=== PATIENT | male | born 1980 | race Caucasian/White ===

== ENCOUNTER 2023-05-16 17:29 | Observation (INO) | payer OTHER, SELFPAY ==
[2023-05-16] VITALS (20 sets, daily range): BP systolic 128–148; BP diastolic 84–109; PULSE 98–118; TEMP 36.5–37.2; O2SAT 94–100; BMI 30.7
--- NOTE | 2023-05-16 17:41 | XR_ITS ---
The [address] [address] Patient Name: LUCERO ENGLISH MRN: [id number] date: 1980 Sex: M Assigned Patient Location: ER Current Patient Location: ED.MAIN Accession/Order Number: [id number] Exam Date: 05/16/2023 17:50 Report Date: 05/16/2023 18:43 At the request of: JANETH BANDA Procedure: XR ankle LT min 3V EXAM: XR ankle LT min 3V HISTORY: fall COMPARISON: None. TECHNIQUE: AP, lateral, radiographs of the ankle labeled left FINDINGS: Trimalleolar fracture. Soft tissue swelling about the ankle. There is anterior dislocation of the tibia by 2.3 cm. There is anterior displacement of the fibula. XR/XR ankle LT min 3V IMPRESSION: 1. Trimalleolar fracture/dislocation. Electronically authenticated by: SHARIF ASHBY Date: 05/16/2023 18:43
--- NOTE | 2023-05-16 17:42 | ED.LOWEXI1 ---
HPI - Extremity Injury (Lower) General Chief Complaint: Extremity Injury, Lower Stated Complaint: lower extremity injury Time Seen by Provider: 05/16/23 17:38 Source: patient Mode of arrival: Wheelchair Limitations: no limitations History of Present Illness HPI Narrative: 42 year-old male presents for left ankle injury. He fell walking today and has not been able to walk since. He states he is an alcoholic and was drinking alcohol heavily today. He is unable to provide detailed history. No other apparent injury was sustained. He was brought in by family. Related Data Home Medications ?Medication ?Instructions ?Recorded ?Confirmed No Known Home Medications 05/16/23 05/16/23 Allergies Allergy/AdvReac Type Severity Reaction Status Date / Time Penicillins Allergy Severe Hives Verified 05/16/23 17:41 Review of Systems ROS Narrative A ten point review of systems is negative except as noted above. Exam Narrative Exam Narrative: Nurses note and vital signs reviewed and patient is not hypoxic. General: The patient appears well and in no apparent distress. Patient is resting comfortably on cart. Skin: Warm, dry, no pallor noted. There is no rash noted. Head: Normocephalic, atraumatic Eye: Normal conjunctiva, no drainage Ears, Nose, Mouth, and Throat: oral mucosa is moist. Nares patent. Cardiovascular: Regular Rate and Rhythm Respiratory: Patient is in no distress, no accessory muscle use, lungs are clear to auscultation, no wheezing, rales or rhonchi Back: non-tender GI: Normal bowel sounds, no tenderness to palpation, no masses appreciated. No rebound, guarding, or rigidity noted. Musculoskeletal: Left ankle is examined. Deformity present with skin intact. Dorsalis pedis pulse 2+. Neurological: Awake and alert Psychiatric: Cooperative Constitutional Vital Signs, click to edit/add: Last Vital Signs Temp 97.7 F 05/16/23 17:35 Pulse 106 H 05/16/23 17:35 Resp 20 05/16/23 17:35 BP 139/109 H 05/16/23 17:35 Pulse Ox 97 05/16/23 17:35 O2 Del Method Room Air 05/16/23 17:35 Course Vital Signs Vital signs: Vital Signs Temperature 97.7 F 05/16/23 17:35 Pulse Rate 106 H 05/16/23 17:35 Respiratory Rate 20 05/16/23 17:35 Blood Pressure 139/109 H 05/16/23 17:35 Pulse Oximetry 97 05/16/23 17:35 Oxygen Delivery Method Room Air 05/16/23 17:35 Temperature 97.7 F 05/16/23 17:35 Pulse Rate 106 H 05/16/23 17:35 Respiratory Rate 20 05/16/23 17:35 Blood Pressure 139/109 H 05/16/23 17:35 Pulse Oximetry 97 05/16/23 17:35 Oxygen Delivery Method Room Air 05/16/23 17:35 MDM - Extremity Injury (Lower) MDM Narrative Medical decision making narrative: Case discussed with Dr. Macario and the patient will be admitted with the plan for surgery tomorrow. Findings are discussed with the patient and his mother. Differential Diagnosis Differential diagnosis: Likely ankle sprain and strain and other (Fracture dislocation) Imaging Data X-ray of ankle: My impression: The initial x-ray shows fracture dislocation with anterior displacement of the tibia. Postreduction on my interpretation as well shows good reduction and he has a trimalleolar fracture. Discharge Plan Discharge Chief Complaint: Extremity Injury, Lower Clinical Impression: Closed fracture dislocation of ankle Patient Disposition: Admitted As Inpatient Time of Disposition Decision: 18:45 Condition: Good Print Language: Kazakh Referrals: ELIZABETH DUNAWAY [Primary Care Provider] - 1 week Procedures ED Ortho Fracture Reduction Moderate Sedation Message Please read if using moderate sedation: The patient was given IV conscious sedation with IV etomidate which resulted in an appropriate level of sedation. He was closely monitored during the procedure and was kept on the heart monitor and O2 saturation monitor. Respiratory therapy was present. Total sedation time was 6 minutes. Other than his O2 saturation going to 90% briefly there were no complications. Please see the attached handwritten conscious sedation procedure note. Orthopedic Fracture Reduction Fracture #1: Time out performed: Yes Side: left Manipulation performed: Yes Fracture reduction location: tibia Analgesia: procedural sedation Technique: traction/counter-traction Anesthesia needed: No Post-reduction x-rays demonstrate: anatomical reduction Post-reduction neuro exam: intact Post-reduction vascular exam: intact Splint applied: Yes Patient tolerated procedure: well Additional comments: The patient was on IV conscious sedation and was monitored closely. At 1 point his O2 saturation went down to 90% and he was bagged and quickly came right back to 99%. Splint applied, application checked by me and found to be appropriate, he is neurovascularly intact
--- NOTE | 2023-05-16 17:43 | PC.NURSE ---
pt rolled ankle coming out of bar today, ankle is red with swelling and appears to be displaced.
--- NOTE | 2023-05-16 17:46 | PC.NURSE ---
pulse to top of injured foot obtained by DR Grove and this nurse at bedside
--- NOTE | 2023-05-16 17:54 | XR_ITS ---
The [address] [address] Patient Name: LUCERO ENGLISH MRN: [id number] date: 1980 Sex: M Assigned Patient Location: ER Current Patient Location: ED.MAIN Accession/Order Number: [id number] Exam Date: 05/16/2023 18:15 Report Date: 05/16/2023 18:45 At the request of: JANETH BANDA Procedure: XR ankle LT min 3V EXAM: XR ankle LT min 3V HISTORY: Postreduction COMPARISON: Ankle radiographs 05/16/2023 TECHNIQUE: AP lateral oblique radiographs of the ankle labeled left. FINDINGS: Splint material in place about the ankle fracture which is now in improved alignment. There is a fracture of the medial malleolus. Fracture of the fibula above the level of the joint line. The Distal fragment is displaced laterally by 0.7 cm. Fracture of the posterior tibia. Soft tissue swelling about the ankle. XR/XR ankle LT min 3V IMPRESSION: 1. Trimalleolar fracture in improved alignment status post splinting. Electronically authenticated by: SHARIF ASHBY Date: 05/16/2023 18:45
[2023-05-16] MEDS: ETOMIDATE 20 MG/10 ML VIAL IVP (18:05)
--- NOTE | 2023-05-16 18:15 | PC.NURSE ---
resp bagging for better oxygen at this time
--- NOTE | 2023-05-16 18:16 | PC.NURSE ---
bagging stopped, and pt on NC at 2L, pt responding at this time. splint in place
[2023-05-16 19:12] LABS: Basophils Percent Auto 0.3 % (0.2-2.0); Eosinophils Percent Auto 0.5 % (0.9-7.0); Hematocrit 45.3 % (42.0-54.0); Hemoglobin 15.6 g/dL (14.0-18.0); Immature Granulocytes Abs Auto 0.01 10^3/uL (0.00-0.03); Immature Granulocytes Pct Auto 0.1 % (0.0-0.5); Lymphocytes Absolute Auto 1.3 10^3/uL (1.2-3.8); Lymphocytes Percent Auto 17.4 % (20.5-60.0); Mean Corpuscular HGB Conc 34.4 g/dL (29.9-35.2); Mean Corpuscular Hemoglobin 31.7 pg (25.9-34.0); Mean Corpuscular Volume 92.1 fL (80.0-94.0); Mean Platelet Volume 9.2 fL (9.5-13.5); Monocytes Absolute Auto 0.3 10^3/uL (0.3-0.8); Monocytes Percent Auto 3.4 % (1.7-12.0); Neutrophils Absolute Auto 5.7 10^3/uL (1.4-6.5); Neutrophils Percent Auto 78.3 % (43.0-75.0); Platelet Count 269 10^3/uL (150-450); Red Blood Count 4.92 10^6/uL (4.70-6.10); Red Cell Distribution Width 11.6 % (11.0-15.0); White Blood Count 7.3 10^3/uL (4.0-11.0)
[2023-05-16 19:28] LABS: Anion Gap 15.8; BUN Creatinine Ratio 5.1; Calcium 8.6 mg/dL (8.5-10.1); Carbon Dioxide 28.9 mmol/L (21.0-32.0); Chloride 100 mmol/L (98-107); Estimated GFR (African America >60 (>=60); Estimated GFR (Non-African Ame >60 (>=60); Ethanol 359 mg/dL; Glucose 132 mg/dL (74-106); Potassium 3.7 mmol/L (3.5-5.1); Sodium 141 mmol/L (136-145)
[2023-05-16] MEDS: MORPHINE SULFATE 4 MG/ML VIAL IV (19:43)
[2023-05-16] MEDS: 0.9 % SODIUM CHLORIDE 1,000 ML 100 ML IV (21:43)
[2023-05-16] MEDS: OXYCODONE HCL/ACETAMINOPHEN 5MG/325MG 1 TAB PO (21:43)
[2023-05-16] MEDS: KETOROLAC TROMETHAMINE 30 MG/ML VIAL IVP (21:44)
[2023-05-16] MEDS: FOLIC ACID 1 MG TABLET PO (21:44)
[2023-05-16] MEDS: THIAMINE MONONITRATE (VIT B1) 100 MG TABLET PO (21:44)
[2023-05-16] MEDS: LORAZEPAM 1 MG TABLET PO (21:51)
[2023-05-17] VITALS (26 sets, daily range): BP systolic 143–162; BP diastolic 82–110; PULSE 83–116; TEMP 36.4–37.1; O2SAT 93–96
--- NOTE | 2023-05-17 | FL_ITS ---
[address] [address] Patient Name: LUCERO ENGLISH MRN: [id number] date: 1980 Sex: M Assigned Patient Location: MS Current Patient Location: MS Accession/Order Number: [id number] Exam Date: 05/17/2023 09:16 Report Date: 05/20/2023 12:50 At the request of: APOLINAR MASON Procedure: FL fluoroscopy <1hr NON-READ EXAM: FL fluoroscopy <1hr NON-READ HISTORY: TECHNIQUE: FINDINGS: Please see Operative Report. Electronically authenticated by: RADIOLOGIST NO Date: 05/20/2023 12:50
[2023-05-17] MEDS: MORPHINE SULFATE 4 MG/ML VIAL IV ×2 (00:11→04:27)
[2023-05-17] MEDS: OXYCODONE HCL/ACETAMINOPHEN 5MG/325MG 1 TAB PO (02:00)
[2023-05-17] MEDS: LORAZEPAM 1 MG TABLET PO (02:00)
[2023-05-17] MEDS: KETOROLAC TROMETHAMINE 30 MG/ML VIAL IVP (04:26)
[2023-05-17 05:16] LABS: Basophils Percent Auto 0.1 % (0.2-2.0); Eosinophils Percent Auto 0.4 % (0.9-7.0); Hematocrit 39.9 % (42.0-54.0); Hemoglobin 13.7 g/dL (14.0-18.0); Immature Granulocytes Abs Auto 0.02 10^3/uL (0.00-0.03); Immature Granulocytes Pct Auto 0.3 % (0.0-0.5); Lymphocytes Absolute Auto 1.8 10^3/uL (1.2-3.8); Lymphocytes Percent Auto 25.2 % (20.5-60.0); Mean Corpuscular HGB Conc 34.3 g/dL (29.9-35.2); Mean Corpuscular Hemoglobin 31.9 pg (25.9-34.0); Mean Corpuscular Volume 92.8 fL (80.0-94.0); Mean Platelet Volume 9.7 fL (9.5-13.5); Monocytes Absolute Auto 0.5 10^3/uL (0.3-0.8); Monocytes Percent Auto 6.4 % (1.7-12.0); Neutrophils Absolute Auto 4.8 10^3/uL (1.4-6.5); Neutrophils Percent Auto 67.6 % (43.0-75.0); Platelet Count 196 10^3/uL (150-450); Red Cell Distribution Width 11.6 % (11.0-15.0); White Blood Count 7.1 10^3/uL (4.0-11.0)
[2023-05-17] MEDS: 0.9 % SODIUM CHLORIDE 1,000 ML 100 ML IV ×2 (06:41→21:23)
--- NOTE | 2023-05-17 07:10 | XR_ITS ---
The [address] [address] Patient Name: LUCERO ENGLISH MRN: [id number] date: 1980 Sex: M Assigned Patient Location: MS Current Patient Location: MS Accession/Order Number: [id number] Exam Date: 05/17/2023 07:20 Report Date: 05/17/2023 07:39 At the request of: IRAM JOHNSON Procedure: XR chest 1V EXAMINATION: XR chest 1V HISTORY: preop eval COMPARISON: No relevant comparison available. FINDINGS: LUNGS: No significant pulmonary parenchymal abnormalities. VASCULATURE: No increased pulmonary vasculature. PLEURA: No pneumothorax, effusion, or pleural thickening. CARDIAC: No cardiomegaly or cardiac silhouette abnormality. MEDIASTINUM: No visible mass or adenopathy. BONES: No fracture or visible bone lesion. OTHER: Negative. XR/XR chest 1V IMPRESSION: 1. Underexpanded lungs without convincing acute abnormality. Electronically authenticated by: KYLE LÓPEZ Date: 05/17/2023 07:39
[2023-05-17 07:27] LABS: Magnesium 1.5 mg/dL (1.8-2.4)
[2023-05-17 07:30] LABS: INR 1.06; Partial Thromboplastin Time 27.7 sec (22.3-36.2); Prothrombin Time 11.2 sec (9.0-11.6)
[2023-05-17] MEDS: LACTATED RINGER'S SOLUTION 1,000 ML 50 ML IV ×2 (08:07→11:36)
[2023-05-17] MEDS: MAGNESIUM SULFATE/D5W 1 GM/100 ML PIGGYBACK IV (08:14)
[2023-05-17] MEDS: HYDROMORPHONE HCL 1 MG/ML CARTRIDGE IV (08:15)
[2023-05-17 08:29] LABS: Alanine Aminotransferase 70 U/L (16-63); Albumin Level 3.5 g/dL (3.4-5.0); Alkaline Phosphatase 64 U/L (46-116); Aspartate Amino Transferase 53 U/L (15-37); BUN Creatinine Ratio 7.1; Bilirubin Total 1.1 mg/dL (0.2-1.0); Calcium 8.2 mg/dL (8.5-10.1); Carbon Dioxide 24.8 mmol/L (21.0-32.0); Chloride 99 mmol/L (98-107); Estimated GFR (African America >60 (>=60); Estimated GFR (Non-African Ame >60 (>=60); Globulin 3.6 g/dL; Glucose 114 mg/dL (74-106); Sodium 139 mmol/L (136-145); Total Protein 7.1 g/dL (6.4-8.2)
[2023-05-17 08:31] LABS: Anion Gap 18.2
[2023-05-17] MEDS: CLINDAMYCIN PHOSPHATE/D5W 900 MG/50 ML PIGGYBACK 100 MG IV (09:58)
--- NOTE | 2023-05-17 11:39 | P.ORON_ITS ---
Brief Operative Note Date of procedure: 05/17/23 Pre-op diagnosis general: left trimalleolar ankle fracture with ankle dislocat ion Post-op diagnosis: same as pre-op Procedure: PROCEDURES PERFORMED: open reduction and internal fixation of trimalleolar ankle fracture without posterior fixation, stress examination under intraoperative fluoroscopy INDICATION FOR PROCEDURE: patient is a 42-year-old alcoholic male who was walking out of bar yesterday afternoon and had a misstep resulting in left ankle fracture dislocation. He is brought to the emergency department was splinted and reduced in admitted under the hospitalist. X-rays revealed a displaced trimalleolar ankle fracture however the posterior malleolus was largely intact with a small avulsion fracture. I recommended open reduction internal fixation and discussed potential risks and benefits. Patient provided consent and all questions were answered to satisfaction. I did emphasize his increased risks of nerve damage/numbness and tingling and skin palpitations given the dislocation and trauma to the soft tissues. In addition he is at higher risk for posttraumatic arthritis and chronic disability given the severity of his fracture. INTRAOPERATIVE FINDINGS: displaced mildly comminuted fibular fracture and transverse fracture of the medial malleolus involving the anterior colliculus. Posterior malleolus had a small avulsion fracture. Bone quality is within normal limits given patient's age and gender. Stress examination after fixation of the lateral and medial malleolus revealed a stable syndesmosis and stable collateral ankle ligaments. PROCEDURES IN DETAIL: Patient was identified in pre op and consent was reviewed. Correct side and site were identified and marked. Pre-op antibiotics were started. Patient was brought to OR suite and place on table in a supine position. General anesthesia was administered. Tourniquet applied. Operative extremity was prepped and draped in usual sterile fashion. Formal time-out was performed and the foot/ankle were exsanguinated and tourniquet inflated. Fibula: A longitudinal incision placed over the fibular malleolus was undertaken. Combination of sharp and blunt dissection gained access to the fibular fracture in all bleeders were coagulated. Hematoma was evacuated. Any periosteum or fibrous tissue was removed from the fracture line and the fracture surfaces were lightly curetted. Then utilizing manual reduction techniques and reduction clamps the fibula and mortise were then reduced and pinned in place with K wires temporarily. 3.5 mm cortical lag screw was placed across the fracture line and compression was noted. 3.5 mm fibular plate was placed over the fibula which was held in place temporarily. Then locking and nonlocking screws were placed according to the routing machine operator's standard directions. Stability across the fracture was noted and all temporary fixation was removed. The site was irrigated Medial malleolus: Incision was placed over the medial malleolus and all bleeders were coagulated. Sharp and blunt dissection gained access to the fracture and fibrous and hematoma tissue was removed. The fracture was curetted lightly and then reduced with reduction clamps. Temporary K wire fixation was placed under fluoroscopic guidance. Two 4.0 mm cannulated screws were placed according to the routing machine operator's standard directions with compression noted across the fracture line. Temporary fixation was removed and surgical site was irrigated. Syndesmosis: Under live fluoroscopy the syndesmosis was stressed and noted to be stable. similarly anterior drawer and talar tilt were tested and also stable. The tourniquet was dropped with a prompt hyperemic response and the surgical sites were allowed to perfuse while being irrigated with 1L of normal saline. once hemostasis was controlled the incisions were closed in layers. A dry sterile dressing consisting of Xeroform on the incisions followed by 4 x 4 gauze, ABDs, and Kerlix were applied. Multiple layers of cast padding were then applied to ensure all bony prominences were well-padded. a layer of winston wraps were then applied followed by additional layers of cast padding. A plaster posterior splint was then applied which was held in place by Winston wraps. Capillary refill time to all digits was evaluated and had appropriate response. Patient tolerated the procedure and anesthesia well was transferred to the recovery room with vital signs stable and brisk capillary refill time to the toes. POSTOPERATIVE PLAN: Transfer to med/surg under hospitalist's care NWB operative foot/ankle Ice and elevation Laurence-op antibiotics, multimodal pain medication and DVT prophylaxis ordered Consults: physical therapy & social media job titles Estimated LOS 1 additional night Will follow *NWB x4-6 weeks Implants: Medline plate/screws Anesthesia: regional and General-LMA Surgeon: Rodrigo Macario Auto Body Service Mechanic: Perez Lott Estimated blood loss (mL): 50 Tourniquet time (min): 63 Pathology: none sent Condition: stable Disposition: PACU
--- NOTE | 2023-05-17 12:53 | PC.NURSE ---
[address] MASON FROM ANESTHESIA. PATIENT'S BLOOD PRESSURES WERE ELEVATING AT ARRIVAL TO [facility]. DR MASON STATES IT HAS TO DO WITH HIS ALCHOLISM . IT WILL NEED TO BE MONITORED AND ADDRESSED IT CONTINUESTO RISE. DR MASON IS AWARE.
[2023-05-17] MEDS: HYDRALAZINE HCL 20 MG/ML VIAL 10 MG IVP (13:23)
--- NOTE | 2023-05-17 13:50 | P.HP_ITS ---
<Statement entered by Sharmila Gomez DO - 05/17/23 15:53> This documentation has been reviewed and approved. Patient also seen and evaluated by me post operatively and agree with librium taper to aid with alcohol withdrawal symptoms. HPI H&P: HPI History of Present Illness Chief complaint: lower extremity injury cLOSED FRACTURE DISLOCATION Narrative: 05/17/23 1310 This is a 42-year-old male patient with a benign past medical history except for chronic EtOH abuse, who presented to the ED last night after suffering a fall and finding he was unable to bear weight on his left ankle. The patient reports that he was out at a restaurant drinking heavily. As he was walking in the restaurant and attempted to step down 1 step, he rolled his ankle and has been unable to bear weight or walk since. He presented to the ED for further evaluation. Workup in the ED revealed elevated EtOH (359), mild hyperglycemia (132), and hypertension (139/109). An x-ray of his left ankle revealed a trimalleolar fracture and dislocation of both the tibia and fibula. The dislocations were reduced in the ED and a splint was applied. He was admitted admitted as an inpatient to the hospitalist service pending surgical intervention by the Dr Macario, cnc grinder, this morning. At the time of my exam the patient had just returned from PACU to his room on the medical floor. He is somnolent but arouses easily to verbal stimuli. He is oriented x 3. He reports alcohol intake history of about 1/5 of vodka a day. He was attempting to wean off his alcohol consumption for the 2 weeks prior to this event, but was binge drinking heavily yesterday prior to the fall. He currently denies any pain. He has sensation but no motion of the left foot after an IntraOp nerve block. He denies chest pain, shortness of breath, or nausea/vomiting. Additional pre-op testing revealed hypomagnesemia (1.5) and this was repleted in the OR before surgery. Opioid HPI Opioid Management Most Recent Opioid Data: Last Pain Scale 10 05/17/23 07:50 Last Pain Assessment 05/17/23 13:50 Last ED Pain Assessment 05/16/23 19:08 Last MAR Pain Assessment 05/17/23 05:34 Last ORT Total Score 7 05/16/23 20:11 Last ORT Risk Category Moderate Risk 05/16/23 20:11 Review of Systems 2 ROS Status of ROS 10 or more systems reviewed and unremark able except as noted in history and below PFSH PFS Medical History (Updated 05/17/23 @ 14:04 by Merna Arrington NP) ETOH abuse ?F10.10 - Alcohol abuse, uncomplicated (ICD-10) Fracture of left ankle ?S82.892A - Other fracture of left lower leg, initial encounter for closed fracture (ICD-10) Laxity of eyelid ?H02.59 - Other disorders affecting eyelid function (ICD-10) Surgical History (Updated 05/16/23 @ 20:18 by Lina Walton) Metal plates in left arm ?Z96.7 - Presence of other bone and tendon implants (ICD-10) Hx of hernia repair ?Z98.890 - Other specified postprocedural states (ICD-10) ?Z87.19 - Personal history of other diseases of the digestive system (ICD-10) Family History (Updated 05/16/23 @ 20:14 by Lina Walton) Grandmother Family history of cancer Family history of hypertension Family history of myocardial infarction Father Family history of hypertension Family history of stroke Grandfather Family history of myocardial infarction Social History (Updated 05/16/23 @ 20:16 by Lina Walton) Within the past year, how often did you have a drink containing alcohol: 4 or more times a week Within the past year, how often did you have six or more drinks on one occasion: daily or almost daily Smoking status: Former smoker Non-prescribed substance use: denies use Previous occupational history: [employer] Highest level of school completed/degree received: high school graduate Are you now , , , , never or living with a partner: never In a typical week, how many times do you talk on the telephone with family, friends, or neighbors: 3 or more times per week How often do you get together with friends or relatives: 3 or more times per week Little interest or pleasure in doing things: not at all Feeling down, depressed, or hopeless: not at all Feel stressed/tense/nervous/anxious/difficulty sleeping: not at all Do you think of yourself as: straight/heterosexual Gender Identity: male Meds Home Medications and Allergies Home Medications ?Medication ?Instructions ?Recorded ?Confirmed ?Type No Known Home Medications 05/16/23 05/16/23 History Allergies Allergy/AdvReac Type Severity Reaction Status Date / Time Penicillins Allergy Severe Hives Verified 05/16/23 17:41 Exam Constitutional Vital Signs, click to edit/add: Last Vital Signs Temp 98.6 F 05/17/23 13:49 Pulse 112 H 05/17/23 13:49 Resp 20 05/17/23 13:49 BP 155/96 H 05/17/23 13:49 Pulse Ox 96 05/17/23 13:49 O2 Del Method Room Air 05/17/23 13:49 O2 Flow Rate 2 05/16/23 18:30 Common normals: no apparent distress, oriented x3, alert and well nourished General appearance: cooperative Orientation/consciousness: Yes awake HENMT Common normals: normocephalic, head/scalp atraumatic, hearing grossly normal bilaterally, external nose normal and moist oral mucous membranes Eye Common normals: PERRL, EOMs intact bilaterally, conjunctivae normal and no scleral icterus Alignment: alignment normal Eyelid: eyelids normal Neck & C-Spine Common normals: full ROM, supple and no JVD Chest Common normals: inspection of chest normal Chest: symmetrical chest wall rise Respiratory Common normals: normal respiratory effort, no retractions, no use of accessory muscles and clear to auscultation bilaterally Effort & inspection: able to speak in complete sentences Cardio Common normals: no JVD, regular rate, regular rhythm, S1 normal heart sound, S2 normal heart sound, no gallops, no clicks, no murmurs, no rub and peripheral pulses 2+ throughout GI Common normals: Normal to inspection, nondistended, normoactive bowel sounds present, soft to palpation, non-tender, no hepatosplenomegaly, no masses and no bruits Palpation: soft and no hepatosplenomegaly Bladder/kidney exam: bladder normal to palpation Back & Pelvis Common normals: thoracic and lumbar spine normal to inspection Extremity Common normals: normal capillary refill and no pedal edema General: normal exam except as noted; no clubbing and no cyanosis Left lower extremity: ankle joint (Surgical splint/drsg in place, D&I) Left ankle: neurovascular exam (No motion, positive sensation. Marrero/warm.) Neuro Gay Coma Scale: GCS not evaluated Common normals: CN's II-XII intact bilaterally, moves all extremities, no focal motor deficits and no sensory deficits noted Psych Common normals: mental status grossly normal, thought process normal, affect normal and activity/motor behavior normal Results Labs Labs: Short CBC 05/16/23 05/17/23 Range/Units 19:02 04:07 WBC 7.3 7.1 (4.0-11.0) 10^3/uL Hgb 15.6 13.7 L (14.0-18.0) g/dL Hct 45.3 39.9 L (42.0-54.0) % Plt Count 269 196 (150-450) 10^3/uL BMP 05/16/23 05/17/23 19:02 04:07 Sodium 141 139 Potassium 3.7 3.0 L Chloride 100 99 Carbon Dioxide 28.9 24.8 BUN 4.0 L 5.0 L Creatinine 0.79 0.70 Glucose 132 H 114 H Calcium 8.6 8.2 L Liver Function 05/17/23 Range/Units 04:07 Total Bilirubin 1.1 H (0.2-1.0) mg/dL AST 53 H (15-37) U/L ALT 70 H (16-63) U/L Alkaline Phosphatase 64 (46-116) U/L Albumin 3.5 (3.4-5.0) g/dL Pulse Oximetry Attestation: I have reviewed the pertinent pulse oximetry results. Imaging Chest x-ray: Attestation: I have reviewed the pertinent imaging results. Radiologist's impression: IMPRESSION: 1. Underexpanded lungs without convincing acute abnormality. Left Ankle X-ray: Attestation: I have reviewed the pertinent imaging results. Radiologist's impression: #1 IMPRESSION: 1. Trimalleolar fracture/dislocation. #2 IMPRESSION: 1. Trimalleolar fracture in improved alignment status post splinting. Assessment and Plan Assessment and Plan (1) Closed fracture dislocation of ankle: Assessment and Plan: Acute * Adm inpatient * C/S Dr Macario, podiatry - we appreciate his assistance with this pt's care * NPO after midnight for surgery this morning * Defer post op pain management, dressing changes, WB status, and PT/OT instructions to the podiatry service * CBC, CMP daily (2) Hypomagnesemia: Assessment and Plan: Acute * Suspect 2/2 chronic EtOH abuse * Mag Sulfate 1 gm transfused in OR * Repeat Mag level in AM and replete as needed * Tele monitoring (3) ETOH abuse: Assessment and Plan: Chronic * Pt reports long hx of EtOH abuse - usually a fifth of vodka daily * EtOH w/drawal protocol w/ CIWA scoring * Librium taper plus PRN librium based in CIWA scoring * PRN IVP Ativan per CIWA scoring * Folic acid, thiamine daily
--- NOTE | 2023-05-17 14:00 | XR_ITS ---
The [address] [address] Patient Name: LUCERO ENGLISH MRN: [id number] date: 1980 Sex: M Assigned Patient Location: MS Current Patient Location: MS Accession/Order Number: [id number] Exam Date: 05/17/2023 14:20 Report Date: 05/17/2023 15:41 At the request of: ANGELA RAMIRES Procedure: XR ankle LT min 3V PROCEDURE: XR ankle LT min 3V HISTORY: ankle fracture COMPARISON: XR ankle left 05/16/2023 FINDINGS: BONES:Mechanical fusion of medial malleolus fracture via 2 lag screws. Repair of lateral malleolus fracture via plate and screws. Normal alignment appears to be maintained. Normal joint spacing. Nondisplaced posterior malleolus fracture. SOFT TISSUES:Swelling surrounding the ankle consistent with recent fractures and surgery. Images were obtained to cast material. EFFUSION:None visible. OTHER: Negative. XR/XR ankle LT min 3V IMPRESSION: 1. Postoperative repair of acute trimalleolar fractures. Electronically authenticated by: KYLE LÓPEZ Date: 05/17/2023 15:41
--- NOTE | 2023-05-17 15:34 | DIETREC ---
Recommend 30 mL PRO-stat BID and 1 pkt Chuy BID, both to aid wound healing.
[2023-05-17] MEDS: CLORDIAZEPOXIDE HCl 25 MG CAPSULE 50 MG PO ×2 (16:35→23:35)
[2023-05-17] MEDS: CLINDAMYCIN PHOSPHATE/D5W 600 MG/50 ML PIGGYBACK 100 MG IV (17:00)
[2023-05-17] MEDS: JUVEN PACKET 1 PACKET PO (21:21)
[2023-05-17] MEDS: PROSTAT 15 GM PROTEIN/100 CAL 30 ML LIQUID PACKET PO (21:21)
[2023-05-17] MEDS: ENOXAPARIN SODIUM 40 MG/0.4 ML SYRINGE SUBQ (21:21)
[2023-05-17] MEDS: PREGABALIN 75 MG CAPSULE PO (21:21)
[2023-05-18] VITALS (13 sets, daily range): BP systolic 144–168; BP diastolic 89–111; PULSE 79–110; TEMP 36.8–37.4; O2SAT 86–97
[2023-05-18] MEDS: CLINDAMYCIN PHOSPHATE/D5W 600 MG/50 ML PIGGYBACK 100 MG IV ×2 (02:30→10:10)
[2023-05-18] MEDS: CLORDIAZEPOXIDE HCl 25 MG CAPSULE 50 MG PO ×2 (04:40→10:11)
[2023-05-18 05:29] LABS: Basophils Percent Auto 0.1 % (0.2-2.0); Eosinophils Percent Auto 0.1 % (0.9-7.0); Hematocrit 37.3 % (42.0-54.0); Hemoglobin 12.7 g/dL (14.0-18.0); Immature Granulocytes Abs Auto 0.02 10^3/uL (0.00-0.03); Immature Granulocytes Pct Auto 0.2 % (0.0-0.5); Lymphocytes Percent Auto 12.2 % (20.5-60.0); Mean Corpuscular Hemoglobin 31.8 pg (25.9-34.0); Mean Corpuscular Volume 93.5 fL (80.0-94.0); Mean Platelet Volume 9.9 fL (9.5-13.5); Monocytes Absolute Auto 0.5 10^3/uL (0.3-0.8); Monocytes Percent Auto 6.3 % (1.7-12.0); Neutrophils Absolute Auto 6.6 10^3/uL (1.4-6.5); Neutrophils Percent Auto 81.1 % (43.0-75.0); Platelet Count 156 10^3/uL (150-450); Red Blood Count 3.99 10^6/uL (4.70-6.10); Red Cell Distribution Width 11.3 % (11.0-15.0); White Blood Count 8.2 10^3/uL (4.0-11.0)
[2023-05-18 05:50] LABS: Magnesium 1.8 mg/dL (1.8-2.4)
[2023-05-18 05:51] LABS: Alanine Aminotransferase 57 U/L (16-63); Albumin Globulin Ratio 0.9; Albumin Level 3.4 g/dL (3.4-5.0); Alkaline Phosphatase 63 U/L (46-116); Anion Gap 13.3; Aspartate Amino Transferase 119 U/L (15-37); BUN Creatinine Ratio 13.6; Bilirubin Total 2.5 mg/dL (0.2-1.0); Calcium 8.8 mg/dL (8.5-10.1); Carbon Dioxide 25.5 mmol/L (21.0-32.0); Chloride 101 mmol/L (98-107); Estimated GFR (African America >60 (>=60); Estimated GFR (Non-African Ame >60 (>=60); Globulin 3.6 g/dL; Glucose 122 mg/dL (74-106); Potassium 3.8 mmol/L (3.5-5.1); Sodium 136 mmol/L (136-145)
[2023-05-18] MEDS: OXYCODONE HCL 5 MG TABLET 10 MG PO ×2 (06:08→14:37)
[2023-05-18] MEDS: 0.9 % SODIUM CHLORIDE 1,000 ML 100 ML IV (07:53)
[2023-05-18] MEDS: JUVEN PACKET 1 PACKET PO (08:30)
[2023-05-18] MEDS: PREGABALIN 75 MG CAPSULE PO (08:30)
[2023-05-18] MEDS: KETOROLAC TROMETHAMINE 30 MG/ML VIAL 15 MG IVP (08:30)
[2023-05-18] MEDS: CHOLECALCIFEROL (VITAMIN D3) 125 MCG/5,000 UNIT TABLET PO (08:30)
[2023-05-18] MEDS: THIAMINE MONONITRATE (VIT B1) 100 MG TABLET PO (08:30)
[2023-05-18] MEDS: FOLIC ACID 1 MG TABLET PO (08:30)
[2023-05-18] MEDS: PROSTAT 15 GM PROTEIN/100 CAL 30 ML LIQUID PACKET PO (08:30)
[2023-05-18] MEDS: ACETAMINOPHEN 325 MG TABLET 650 MG PO (10:10)
[2023-05-18] MEDS: OXYCODONE HCL 15 MG TABLET PO (10:10)
--- NOTE | 2023-05-18 11:36 | P.DS_ITS ---
DS: Providers Provider Date of admission: 05/16/23 19:48 Primary care physician: ELIZABETH DUNAWYA Consults: 05/16/23 19:07 Consult to Podiatry Routine Consulting Provider: Rdorigo Macario Reason for consultation: FX L Ankle, OR in AM Has provider been notified: Yes 05/17/23 11:52 Physical Therapy Eval and Treat Routine Reason for consultation: gait training DS: Diagnosis Discharge Diagnosis (1) Closed fracture dislocation of ankle: (2) Hypomagnesemia: (3) ETOH abuse: Plan (1) Closed fracture dislocation of ankle: Assessment and Plan: Acute * Adm inpatient * C/S Dr Macario, podiatry - we appreciate his assistance with this pt's care * NPO after midnight for surgery this morning * Defer post op pain management, dressing changes, WB status, and PT/OT instructions to the podiatry service * CBC, CMP daily(2) Hypomagnesemia: Assessment and Plan: Acute * Suspect 2/2 chronic EtOH abuse * Mag Sulfate 1 gm transfused in OR * Repeat Mag level in AM and replete as needed * Tele monitoring(3) ETOH abuse: Assessment and Plan: Chronic * Pt reports long hx of EtOH abuse - usually a fifth of vodka daily * EtOH w/drawal protocol w/ CIWA scoring * Librium taper plus PRN librium based in CIWA scoring * PRN IVP Ativan per CIWA scoring * Folic acid, thiamine daily ? DS: Summary Time Spent with Patient Time attestation: Total time spent providing and/or coordinating discharge services: Exam Constitutional Vital Signs, click to edit/add: Last Vital Signs Temp 99.4 F 05/18/23 08:05 Pulse 86 05/18/23 09:52 Resp 16 05/18/23 08:01 BP 168/111 H 05/18/23 08:01 Pulse Ox 96 05/18/23 08:01 O2 Del Method Room Air 05/18/23 08:01 O2 Flow Rate 2 05/16/23 18:30 DS: Data Data Completed and Pending Labs on day of discharge: Labs from last 24 hours 05/18/23 04:40 WBC 8.2 RBC 3.99 L Hgb 12.7 L Hct 37.3 L MCV 93.5 MCH 31.8 MCHC 34.0 RDW 11.3 Plt Count 156 MPV 9.9 Neut % (Auto) 81.1 H Lymph % (Auto) 12.2 L [place] % (Auto) 6.3 Eos % (Auto) 0.1 L Baso % (Auto) 0.1 L Neut # (Auto) 6.6 H Lymph # (Auto) 1.0 L [place] # (Auto) 0.5 Eos # (Auto) 0.0 Baso # (Auto) 0.0 Abs Immat Gran (auto) 0.02 Imm/Tot Granulo (auto) 0.2 Sodium 136 Potassium 3.8 Chloride 101 Carbon Dioxide 25.5 Anion Gap 13.3 BUN 9.0 Creatinine 0.66 L Est GFR ( Amer) >60 Est GFR (Non-Af Amer) >60 BUN/Creatinine Ratio 13.6 Glucose 122 H Calcium 8.8 Magnesium 1.8 Total Bilirubin 2.5 H AST 119 H ALT 57 Alkaline Phosphatase 63 Total Protein 7.0 Albumin 3.4 Globulin 3.6 Albumin/Globulin Ratio 0.9 Discharge Plan Discharge Disposition: Home, Self-Care Condition: Good Discharge Medications: No Action No Known Home Medications Print Language: Icelandic Forms: Portal Instructions
--- NOTE | 2023-05-18 11:37 | P.DS_ITS ---
DS: Providers Provider Date of admission: 05/16/23 19:48 Primary care physician: ELIZABETH DUNAWAY Consults: 05/16/23 19:07 Consult to Podiatry Routine Consulting Provider: Rodrigo Macario Reason for consultation: FX L Ankle, OR in AM Has provider been notified: Yes 05/17/23 11:52 Physical Therapy Eval and Treat Routine Reason for consultation: gait training DS: Diagnosis Discharge Diagnosis (1) Closed fracture dislocation of ankle: (2) Hypomagnesemia: (3) ETOH abuse: Plan Acute blood loss anemia secondary to fracture and surgical repair. Elevated liver function test likely secondary to alcohol abuse Uncontrolled hypertension-monitor as an outpatient DS: Summary Hospital Course Hospital Course: Patient status post fall with significant alcohol intoxication, he states he has been working on limiting his drinking. Fell off the [employer]. Patient was taken to the operating room for left lower extremity fracture with repair. Only issue this morning was did have little bit of anemia. But blood pressure is much improved. I suspect the anemia secondary to the fall and not likely to be progressive. His pain is fairly well-controlled. Discharge disposition per podiatry but likely discharge to home today. Medications see list. Follow-up with his PCP and encouraged to not intake any alcohol. Patient current with no alcohol withdrawal symptoms. Time Spent with Patient Time attestation: Total time spent providing and/or coordinating discharge services: Exam Constitutional Vital Signs, click to edit/add: Last Vital Signs Temp 99.4 F 05/18/23 08:05 Pulse 86 05/18/23 09:52 Resp 16 05/18/23 08:01 BP 168/111 H 05/18/23 08:01 Pulse Ox 96 05/18/23 08:01 O2 Del Method Room Air 05/18/23 08:01 O2 Flow Rate 2 05/16/23 18:30 Common normals: no apparent distress, oriented x3, alert and well nourished General appearance: cooperative Orientation/consciousness: Yes awake HENMT Common normals: normocephalic, head/scalp atraumatic, hearing grossly normal bilaterally, external nose normal and moist oral mucous membranes Eye Common normals: PERRL, EOMs intact bilaterally, conjunctivae normal and no scleral icterus Alignment: alignment normal Eyelid: eyelids normal Neck & C-Spine Common normals: full ROM, supple and no JVD Chest Common normals: inspection of chest normal Chest: symmetrical chest wall rise Respiratory Common normals: normal respiratory effort, no retractions, no use of accessory muscles and clear to auscultation bilaterally Effort & inspection: able to speak in complete sentences Cardio Common normals: no JVD, regular rate, regular rhythm, S1 normal heart sound, S2 normal heart sound, no gallops, no clicks, no murmurs, no rub and peripheral pulses 2+ throughout GI Common normals: Normal to inspection, nondistended, normoactive bowel sounds present, soft to palpation, non-tender, no hepatosplenomegaly, no masses and no bruits Palpation: soft and no hepatosplenomegaly Bladder/kidney exam: bladder normal to palpation Back & Pelvis Common normals: thoracic and lumbar spine normal to inspection Extremity Common normals: normal capillary refill and no pedal edema General: normal exam except as noted; no clubbing and no cyanosis Left lower extremity: ankle joint (Surgical splint/drsg in place, D&I) Left ankle: neurovascular exam (No motion, positive sensation. [place]/warm.) Neuro Pao Coma Scale: GCS not evaluated Common normals: CN's II-XII intact bilaterally, moves all extremities, no focal motor deficits and no sensory deficits noted Psych Common normals: mental status grossly normal, thought process normal, affect normal and activity/motor behavior normal DS: Data Data Completed and Pending Labs on day of discharge: Labs from last 24 hours 05/18/23 04:40 WBC 8.2 RBC 3.99 L Hgb 12.7 L Hct 37.3 L MCV 93.5 MCH 31.8 MCHC 34.0 RDW 11.3 Plt Count 156 MPV 9.9 Neut % (Auto) 81.1 H Lymph % (Auto) 12.2 L [place] % (Auto) 6.3 Eos % (Auto) 0.1 L Baso % (Auto) 0.1 L Neut # (Auto) 6.6 H Lymph # (Auto) 1.0 L [place] # (Auto) 0.5 Eos # (Auto) 0.0 Baso # (Auto) 0.0 Abs Immat Gran (auto) 0.02 Imm/Tot Granulo (auto) 0.2 Sodium 136 Potassium 3.8 Chloride 101 Carbon Dioxide 25.5 Anion Gap 13.3 BUN 9.0 Creatinine 0.66 L Est GFR ( Amer) >60 Est GFR (Non-Af Amer) >60 BUN/Creatinine Ratio 13.6 Glucose 122 H Calcium 8.8 Magnesium 1.8 Total Bilirubin 2.5 H AST 119 H ALT 57 Alkaline Phosphatase 63 Total Protein 7.0 Albumin 3.4 Globulin 3.6 Albumin/Globulin Ratio 0.9 Discharge Plan Discharge Disposition: Home, Self-Care Condition: Good Discharge Medications: New sennosides [Senna Laxative] 8.6 mg tablet 8.6 mg PO DAILY PRN (Reason: constipation) 7 Days Qty: 7 0RF doxycycline hyclate 100 mg capsule 100 mg PO BID 7 Days Qty: 14 0RF tizanidine 2 mg tablet 2 mg PO TID PRN (Reason: muscle spasticity) 7 Days Qty: 21 0RF aspirin [Adult Low Dose Aspirin] 81 mg tablet,delayed release (DR/EC) 81 mg PO BID 30 Days Qty: 60 0RF ondansetron 4 mg tablet,disintegrating 4 mg PO Q8H PRN (Reason: nausea and vomiting) 5 Days Qty: 15 0RF cholecalciferol (vitamin D3) 125 mcg (5,000 unit) capsule 125 mcg PO DAILY 90 Days Qty: 90 0RF oxycodone-acetaminophen [Percocet] 5-325 mg tablet 1 tab PO Q6H PRN (Reason: pain) 7 Days Qty: 28 0RF naloxone 4 mg/actuation spray,non-aerosol 4 mg intranasal Q2M PRN (Reason: opioid overdose) Qty: 2 0RF Rx Instructions: spray 1 dose into ONE nostril; alternate nostrils w each dose until help arrives Activity Detail: Please leave dressing to left lower extremity clean dry and intact. Do not attempt to remove the dressing or get it wet. Please maintain nonweightbearing to left foot. Please use crutches walker or knee scooter for assistance. Please take medications as prescribed. Please rest, ice behind the left knee, elevate the left foot above the level of your chest to assist with pain or swelling. Please follow-up with Dr. Macario's office in 7-10 days. Please call the office to confirm appointment and/or with any questions/concerns. Print Language: Icelandic Forms: Portal Instructions
--- NOTE | 2023-05-18 12:58 | PM.PN ---
Progress Note: Subjective Subjective Interval history: Patient seen and evaluated bedside this a.m. resting comfortably. POD 1 s/p left ORIF trimalleolar ankle fracture, DOS 05/17/2023. States overnight he feels the block begin to wear off and feels the pain is now controlled with oral medications. denies any paresthesias, denies any other acute lower extremity complaints. He denies any constitutional symptoms at time of visit. Exam Narrative Exam Narrative: LLE splint left CDI. CFT intact to digits. No erythema edema or ecchymosis proximal or distal to dressing. Active passive range of motion digits present, light touch and gross sensation intact to digits. Compartments soft compressible, no pain with calf or thigh compression. Constitutional Vital Signs, click to edit/add: Last Vital Signs Temp 98.3 F 05/18/23 12:37 Pulse 110 H 05/18/23 11:55 Resp 18 05/18/23 11:55 BP 144/89 H 05/18/23 11:55 Pulse Ox 95 05/18/23 11:55 O2 Del Method Room Air 05/18/23 11:55 O2 Flow Rate 2 05/16/23 18:30 Progress Note: Objective Labs Labs: Short CBC 05/18/23 Range/Units 04:40 WBC 8.2 (4.0-11.0) 10^3/uL Hgb 12.7 L (14.0-18.0) g/dL Hct 37.3 L (42.0-54.0) % Plt Count 156 (150-450) 10^3/uL BMP 05/18/23 04:40 Sodium 136 Potassium 3.8 Chloride 101 Carbon Dioxide 25.5 BUN 9.0 Creatinine 0.66 L Glucose 122 H Calcium 8.8 Liver Function 05/18/23 Range/Units 04:40 Total Bilirubin 2.5 H (0.2-1.0) mg/dL AST 119 H (15-37) U/L ALT 57 (16-63) U/L Alkaline Phosphatase 63 (46-116) U/L Albumin 3.4 (3.4-5.0) g/dL Progress Note: A&P Assessment and Plan (1) Closed fracture dislocation of ankle: Assessment and Plan: Patient examined evaluated. All findings discussed with patient all questions answered to patient's satisfaction. Pertinent labs and imaging reviewed. LLE splint to be left CDI until follow-up. nonweightbearing to left lower extremity. Patient's pain appears to be controlled with oral medications. This point will be cleared to discharge from podiatry's perspective with follow-up in 1 week of discharge. Postop medication sent to patient's pharmacy on file. Rest per primary, please call with questions or concerns. (2) Hypomagnesemia: (3) ETOH abuse:
--- NOTE | 2023-05-20 15:17 | CM.DCFOLLOWU ---
Person spoke with: patient How are you feeling? not too bad How is your pain? just taking something at night to help sleep, controlled Did you understand your discharge instructions? yes Do you have any questions about your discharge instructions? no Were you given any prescriptions at discharge? yes Were you able to get your prescriptions filled? yes Do you understand how to take your medications as ordered? yes Do you have any questions about your follow up appointment and do you plan to keep your follow up appointment? no questions, follow up Saturday at Dr. Palma Is there anything else that you would like to discuss? no Questions/Comments/Concerns/Other: N/A
== END 2023-05-18 15:09 | disposition home or self-care (01) ==
LOC: ER 18:50 → MS 05-17 06:47
PROVIDERS: Nurse Practitioner; Nurse Practitioner Acute Care; Podiatrist Foot & Ankle Surgery; Admitting Provider Family Medicine; Emergency Provider Emergency Medicine; PCP Family Medicine; Visit Provider Family Medicine
PROC: (CPT 1480; principal; 2023-05-17 08:40)
DX: S82.852A Displaced trimalleolar fracture of left lower leg, initial encounter for closed fracture (principal); F10.129 Alcohol abuse with intoxication, unspecified; Y90.8 Blood alcohol level of 240 mg/100 ml or more; Z96.7 Presence of other bone and tendon implants; W19.XXXA Unspecified fall, initial encounter; E83.42 Hypomagnesemia; D62 Acute posthemorrhagic anemia; R79.89 Other specified abnormal findings of blood chemistry; I10 Essential (primary) hypertension; Z98.890 Other specified postprocedural states; Z87.891 Personal history of nicotine dependence
CPT/HCPCS: 27822; 36415; 64445; 64447; 71045; 73610; 76000; 80048; 80053; 80307; 80320; 83735; 85025; 85610; 85730; 96365; 96366; 96367; 96372; 96375; 96376; 97161; 99152; 99285; C1713; G0378; J1094; J1170; J2704

== ENCOUNTER 2023-06-06 10:13 | Outpatient (OUT) | payer OTHER, SELFPAY ==
--- NOTE | 2023-06-06 | XR_ITS ---
The [address] [address] Patient Name: LUCERO ENGLISH MRN: [id number] date: 1980 Sex: M Assigned Patient Location: Current Patient Location: Accession/Order Number: [id number] Exam Date: 06/06/2023 10:30 Report Date: 06/07/2023 07:26 At the request of: SEKOU INIGUEZ Procedure: XR ankle LT min 3V PROCEDURE: XR ankle LT min 3V HISTORY: LEFT ANKLE PAIN ; follow-up fracture and dislocation COMPARISON: XR ankle left 05/17/2023 FINDINGS: BONES:Prior repair of medial and lateral malleolus fractures without evidence of hardware fracture loosening. No appreciable callus formation or increased density of the fracture lines. SOFT TISSUES:Soft tissue swelling surrounding the ankle. EFFUSION:None visible. OTHER: Negative. XR/XR ankle LT min 3V IMPRESSION: 1. Stable surgical changes without evidence of hardware failure or change in alignment. 2. No radiographic evidence of significant bone healing at this time. Electronically authenticated by: KYLE LÓPEZ Date: 06/07/2023 07:26
== END 2023-06-06 10:14 | disposition home or self-care (01) ==
LOC: EC 10:13
PROVIDERS: PCP Family Medicine; Visit Provider Physician Assistant
DX: M25.572 Pain in left ankle and joints of left foot (principal)
CPT/HCPCS: 73610

== ENCOUNTER 2023-06-26 10:05 | Outpatient (OUT) | payer OTHER, SELFPAY ==
--- NOTE | 2023-06-26 | XR_ITS ---
The [address] [address] Patient Name: LUCERO ENGLISH MRN: [id number] date: 1980 Sex: M Assigned Patient Location: Current Patient Location: Accession/Order Number: [id number] Exam Date: 06/26/2023 10:08 Report Date: 06/26/2023 14:19 At the request of: ANGELA RAMIRES Procedure: XR ankle LT min 3V PROCEDURE: XR ankle LT min 3V COMPARISON: 06/04/2023 HISTORY: LEFT ANKLE PAIN FINDINGS: BONES:Stable bimalleolar fracture with internal fixation. 2 screws across the medial malleolus. Lateral plate and screws across the distal fibula. Increased lytic change along the fracture plane with no significant bone formation observed. No new fracture or dislocation SOFT TISSUES:Negative. No visible soft tissue swelling. EFFUSION:None visible. OTHER: Negative. XR/XR ankle LT min 3V IMPRESSION: Stable bimalleolar fractures with internal fixation. Electronically authenticated by: FERCHO VENTURA Date: 06/26/2023 14:19
== END 2023-06-26 10:06 | disposition home or self-care (01) ==
LOC: EC 10:05
PROVIDERS: PCP Family Medicine; Visit Provider Podiatrist Foot & Ankle Surgery
DX: S82.842D Displaced bimalleolar fracture of left lower leg, subsequent encounter for closed fracture with routine healing (principal)
CPT/HCPCS: 73610

== ENCOUNTER 2023-07-17 10:40 | Outpatient (OUT) | payer OTHER, SELFPAY ==
--- NOTE | 2023-07-17 | XR_ITS ---
[address] [address] Patient Name: LUCERO ENGLISH MRN: [id number] date: 1980 Sex: M Assigned Patient Location: Current Patient Location: Accession/Order Number: [id number] Exam Date: 07/17/2023 10:45 Report Date: 07/17/2023 14:53 At the request of: ANGELA RAMIRES Procedure: XR ankle LT min 3V PROCEDURE: XR ankle LT min 3V COMPARISON: 06/26/2023 HISTORY: LEFT ANKLE PAIN FINDINGS: BONES:Stable trimalleolar fracture with internal fixation of the medial malleolus using 2 Screws and fixation of the distal fibula with a lateral plate and screws. Minimal interval sclerosis SOFT TISSUES:Negative. No visible soft tissue swelling. EFFUSION:None visible. OTHER: Negative. XR/XR ankle LT min 3V IMPRESSION: Stable healing trimalleolar fracture Electronically authenticated by: FERCHO VENTURA Date: 07/17/2023 14:53
--- OUTSIDE RECORDS SUMMARY | 2023-07-17 10:59 | XMS_ITS | CCD ---
Author Organization [facility] Informat ion Partnership [facility] Care Team Providers Care It Security Engineer Name Role Phone DR MURPHY SO Primary Care Unavailable CHARLENE, DR ESTEFANI Lincoln Consulting Unavailable TORO, DR HAYNES Admitting Unavailable PAY, DR HAYNES Attending Unavailable JORDAN VAZQUEZ Consulting Unavailable LUCINDA JONES Consulting Unavailable DO Murphy So Primary Care Provider MD Akash Greenfield Admit Provider MD Akash Greenfield Attending Provider [phone] Murphy So Primary Care Unavailable Gurpreet Calderón Attending UnavailAkash Fried Admitting Unavailable ANA PAULA LOVING Attending Unavailable MURPHY SO Referring Unavailable MURPHY SO Primary Care Unavailable Allergies Allergy Classification Reported Allergen(s) Allergy Type Date of Onset Reaction(s) Facility (1 source) Penicillin Drug Allergy [facility] Repository (3 sources) Penicillins; Translations: [Penicillins] Allergy to substance 05-27-2021 [facility] Medications Current Medications Medication Drug Class(es) Dates Sig (Normalized) Sig (Original) escitalopram 10 mg oral tablet (1 source) Serotonin Reuptake Inhibitor Start: 05-31-2021 take 10 mg by mouth once daily Escitalopram Oxalate Active 10 MG PO Daily 15 May 31, 2021 8:43am hydrOXYzine pamoate 50 mg oral capsule (1 source) Antihistamine Start: 05-31-2021 take 50 mg by mouth every six hours Hydroxyzine Pamoate Active 50 MG PO Q6H 30 May 31, 2021 8:43am Problems Problem Classification Problem Date Documented Da te Episodic/Chronic Alcohol-related disorders (1 source) Alcohol dependence, uncomplicated; Translations: [ALCOHOL DEPENDENCE UNCOMPLICATED] Onset: 05-30-2021 Chronic Cardiac dysrhythmias (1 source) Tachycardia, unspecified; Translations: [TACHYCARDIA UNSPECIFIED] Onset: 05-30-2021 Episodic E Codes: Unspecified (1 source) Blood alcohol level of 240 mg/100 ml or more; Translations: [BLOOD ALCOHOL LV 240 MG/100 ML/MORE] Onset: 05-30-2021 Episodic Essential hypertension (1 source) Essential (primary) hypertension; Translations: [Essential (primary) hypertension] Onset: 11-27-2021 Chronic Mood disorders (3 sources) Major depressive disorder, single episode, unspecified; Translations: [Recurrent major depression] Onset: 05-30-2021 05-28-2021 Chronic Nausea and vomiting (1 source) Nausea Onset: 06-26-2023 Episodic Residual codes; unclassified (2 sources) Alcoholism; Translations: [Alcohol use disorder] 05-28-2021 Episodic Suicide and intentional self-inflicted injury (4 sources) Suicidal ideations; Translations: [SUICIDAL IDEATIONS] Onset: 05-26-2021 Episodic Unclassified (1 source) CONTACT W/AND (SUSP) EXPOS COVID-19; Translations: [CONTACT W/AND (SUSP) EXPOS COVID-19] Onset: 05-30-2021 Unclassified (1 source) F33.9 - Major depressive disorder, recurrent, unspecified; Translations: [F33.9 - Major depressive disorder, recurrent, unspecified] Onset: 05-27-2021 Unclassified (1 source) Alcohol abuse with withdrawal, unspecified; Translations: [Alcohol abuse with withdrawal, unspecified] Onset: 06-26-2023 Results Test Name Value Interpretation Reference Range Facility Cholesterol [Mass/volume] in Serum or PlasmaOrdered By: Akash Greenfield on 05-28-2021 Cholesterol [Mass/Vol] 219 mg/dL 140-200 [facility] Comment on above: Chol less than 200 m g/dl low riskChol 201-239 mg/dl borderline riskChol 240 mg/dl and greater high risk Cholesterol in LDL Calc [Mas s/Vol]Ordered By: Akash Greenfield on 05-28-2021 Cholesterol in LDL [Mass/Vol] 122 mg/dL 0-100 [facility] Comment on above: LDL ATP III CLASSIFI CATIONLDL less than 100 mg/dL OptimalLDL 100-129 mg/dL Near or above optimalLDL 130-159 mg/dL Borderline highLDL 160-189 mg/dL HighLDL greater than 189 mg/dL Very high Cholesterol in VLDL Calc [Ma ss/Vol]Ordered By: Akash Greenfield on 05-28-2021 Cholesterol in VLDL [Mass/Vol] 19 mg/dL [facility] ECG 12 lead ECGon 05-28-2021 ECG 12 lead ECG [facility] Main [place] [address] [place] [address] Electrocardiograph Report Signed Patient: Omid English MR#: [id number] : 1980 Acct:[id number] Age/Sex: 40 / M ADM Date: 05/27/21 Loc: Room: [address] [place] [address] Type: DIS IN Attending Dr: Gurpreet Calderón MD Ordering Provider: Akash Greenfield MD Date of Service: 05/28/2112/09/499 ECG/ECG 12 lead ECG: medications Copies to: Test Reason : Blood Pressure : / mmHG Vent. Rate : 057 BPM Atrial Rate : 057 BPM P-R Int : 158 ms QRS Dur : 096 ms QT Int : 426 ms P-R-T Axes : 026 039 033 degrees QTc Int : 414 ms Sinus bradycardia Early repolarization Otherwise normal ECG No previous ECGs available Confirmed by ALLA FORDE [facility], TRIP ([id number]) on 05/28/2021 6:39:23 PM Referred By: Electronically Signed By:TRIP ISRAEL MD [facility] Transcribed By: MUS Signed By Trip Israel MD, FAC 05/28/21 1839 Normal [facility] Lipid Panelon 05-28-2021 Cholesterol [Mass/Vol] 219 mg/dL High 140-200 [facility] Comment on above: Result Comment: Chol less than 200 mg/dl low risk Chol 201-239 mg/dl borderline risk Chol 240 mg/dl and greater high risk Performed By: #### L IPID, TSH3 wRFLX, [id number] #### [facility] [address] Cholesterol in HDL [Mass/Vol] 78 mg/dL High 29-71 [facility] Comment on above: Result Comment: HDL CHOL ATP-III CLASSIFICATION Cardiovascular Risk HDL > or equal to 60 mg/dL LOW HDL < 40 mg/dL HIGH Performed By: #### L IPID, TSH3 wRFLX, [id number] #### [facility] [address] Cholesterol.total/Chol esterol in HDL [Mass ratio] 2.8 {ratio} Normal <5.0 [facility] Comment on above: Performed By: #### L IPID, TSH3 wRFLX, [id number] #### [facility] [address] LDL Cholesterol,Calculated 122 mg/dL High 0-100 [facility] Comment on above: Result Comment: LDL ATP III CLASSIFICATION LDL less than 100 mg/dL Optimal LDL 100-129 mg/dL Near or above optimal LDL 130-159 mg/dL Borderline high LDL 160-189 mg/dL High LDL greater than 189 mg/dL Very high Performed By: #### L IPID, TSH3 wRFLX, [id number] #### [facility] [address] Triglyceride w/Reflex 97 mg/dL Normal 35-149 [facility] Comment on above: Result Comment: TRIG ATP III CLASSIFICATION TRIG less than 150 mg/dL Normal TRIG 150-199 mg/dL Borderline high TRIG 200-500 mg/dL High TRIG greater than 500 mg/dL Very high Standard traceable to the Center for Disease Conrtrol and Prevention (CDC) test method. Performed By: #### L IPID, TSH3 wRFLX, [id number] #### [facility] [address] VLDL CHOLESTEROL 19 mg/dL Normal [facility] Comment on above: Performed By: #### L IPID, TSH3 wRFLX, [id number] #### [facility] [address] No Panel InformationOrdered By: Akash Greenfield on 05-28-2021 25-Hydroxy Vitamin D Total 14.3 ng/mL 30-100 [facility] Comment on above: VITAMIN D STATUS 25( OH)VITAMIN D RANGE (ng/mL) Deficient <20 Insufficient 20 to <30Sufficient 30 to 100Reference: Lary MF,Bahman SMITH, Cherelle NGUYEN, et al. Evaluation,treatment, and prevention of vitamin D deficiency; an Endocrine Society clinical practice guideline. JCEM. 2010; 96(7):1911-30. Serum or plasma high density lipoprotein (HDL) cholesterol measurementOrdered By: Akash Greenfield on 05-28-2021 Cholesterol in HDL [Mass/Vol] 78 mg/dL 29-71 [facility] Comment on above: HDL CHOL ATP-III CLA SSIFICATION Cardiovascular RiskHDL > or equal to 60 mg/dL LOWHDL < 40 mg/dL HIGH Serum or plasma total choles terol/high density lipoprotein (HDL) cholesterol mass ratOrdered By: Akash Greenfield on 05-28-2021 Cholesterol.total/Chol esterol in HDL [Mass ratio] 2.8 {ratio} [facility] TSH DL <= 0.005 mIU/L QnOrde red By: Akash Greenfield on 05-28-2021 TSH Qn 3.16 m[IU]/L 0.45-5.33 [facility] Thyroid Stim Hormone w/Rflxo n 05-28-2021 Thyroid Stim Hormone w/Rflx 3.16 u[iU]/mL Normal 0.45-5.33 [facility] Comment on above: Performed By: #### L IPID, TSH3 wRFLX, [id number] #### [facility] [address] Triglyceride [Mass/volume] i n Serum or PlasmaOrdered By: Akash Greenfield on 05-28-2021 Triglyceride [Mass/Vol] 97 mg/dL 35-149 [facility] Comment on above: TRIG ATP III CLASSIF ICATIONTRIG less than 150 mg/dL NormalTRIG 150-199 mg/dL Borderline highTRIG 200-500 mg/dL High TRIG greater than 500 mg/dL Very highStandard traceable to the Center for Disease Conrtrol and Prevention (CDC) test method. Vitamin D 25 Hydroxy Totalon 05-28-2021 Vitamin D 25 Hydroxy Total 14.3 ng/mL Low 30-100 [facility] Comment on above: Result Comment: KIMBERLY MIN D STATUS 25(OH)VITAMIN D RANGE (ng/mL) Deficient <20 Insufficient 20 to <30 Sufficient 30 to 100 Reference: Lary MF,Bahman NC, Cherelle NGUYEN, et al. Evaluation,treatment, and prevention of vitamin D deficiency; an Endocrine Society clinical practice guideline. JCEM. 2010; 96(7):1911-30. PERFORMED BY: [facility] [address] [place] [address] PATHOLOGIST TERRITORY SALES PROFESSIONAL BJ LEE M.D. Performed By: #### L IPID, TSH3 wRFLX, [id number] #### [place] [address] [place] ETHANOL (BLD ALC)on 05-28-19 22 ALC NOTE NOTE: 80 mg/dl is th e legal limit for a blood alcohol level Normal [facility] Comment on above: Performed By: #### E TH #### [facility] [address] [address] [address] Eliseo Olguin Ethanol [Mass/Vol] 15 mg/dL Normal [facility] Comment on above: Performed By: #### E TH #### [facility] [address] [place] [address] Dr. Eliseo Olguin ALC NOTE NOTE: 80 mg/dl is th e legal limit for a blood alcohol level Normal [facility] Comment on above: Performed By: #### E TH #### [facility] [address] [address] [address] Eliseo Olguin Ethanol [Mass/Vol] 118 mg/dL Normal [facility] Comment on above: Performed By: #### E TH #### [facility] [address] [address] [address] Eliseo Olguin ACETAMINOPHENon 05-26-2021 Acetaminophen [Mass/Vol] ug/mL Normal 10.0-30.0 [facility] Comment on above: Performed By: #### S ALYC, ACET, CMP #### [facility] [address] [place] [address] Dr. Eliseo Olguin CBC AUTO DIFFon 05-26-2021 BASO # 0.0 103/ul Normal 0.0-0.1 [facility] Comment on above: Performed By: #### C BC #### [facility] [address] [place] [address] Dr. Eliseo Olguin Basophils/100 WBC (Bld) 0.6 % Normal 0.2-2.0 [facility] Comment on above: Performed By: #### C BC #### [facility] [address] [place] [address] Dr. Eliseo Olguin EO # 0.0 103/ul Normal 0.0-0.7 [facility] Comment on above: Performed By: #### C BC #### [facility] [address] [place] [address] Dr. Eliseo Olguin Eosinophils/100 WBC (Bld) 0.2 % Critically low 0.9-7.0 [facility] Comment on above: Performed By: #### C BC #### [facility] [address] [place] [address] Dr. Eliseo Olguin Erythrocyte distribution width (RBC) [Ratio] 11.0 % Normal 11.0-15.0 [facility] Comment on above: Performed By: #### C BC #### [facility] [address] [place] [address] Dr. Eliseo Olguin Hematocrit (Bld) [Volume fraction] 52.2 % Normal 42.0-54.0 [facility] Comment on above: Performed By: #### C BC #### [facility] [address] [place] [address] Dr. Eliseo Olguin Hemoglobin (Bld) [Mass/Vol] 18.2 g/dL Critically high 14.0-18.0 [facility] Comment on above: Performed By: #### C BC #### [facility] [address] [place] [address] Dr. Eliseo Olguin IG # 0.01 10e3/ul Normal 0.00-0.03 [facility] Comment on above: Performed By: #### C BC #### [facility] [address] [place] [address] Dr. Eliseo Olguin IG % 0.2 % Normal 0.0-0.5 [facility] Comment on above: Performed By: #### C BC #### [facility] [address] [place] [address] Dr. Eliseo Olguin LYMPH # 1.9 103/ul Normal 1.2-3.8 [facility] Comment on above: Performed By: #### C BC #### [facility] [address] [place] [address] Dr. Eliseo Olguin Lymphocytes/100 WBC (Bld) 36.6 % Normal 20.5-60.0 [facility] Comment on above: Performed By: #### C BC #### [facility] [address] [place] [address] Dr. Eliseo Olguin MANUAL DIFF REQ NO Normal [facility] Comment on above: Performed By: #### C BC #### [facility] [address] [place] [address] Dr. Eliseo Olguin MCH (RBC) [Entitic mass] 32.0 pg Normal 25.9-34.0 [facility] Comment on above: Performed By: #### C BC #### [facility] [address] [place] [address] Dr. Eliseo Olguin MCHC (RBC) [Mass/Vol] 34.9 g/dL Normal 29.9-35.2 [facility] Comment on above: Performed By: #### C BC #### [facility] [address] [place] [address] Dr. Eliseo Olguin MCV (RBC) [Entitic vol] 91.7 fL Normal 80.0-94.0 [facility] Comment on above: Performed By: #### C BC #### [facility] [address] [place] [address] Dr. Eliseo Olguin MONO # 0.5 103/ul Normal 0.3-0.8 [facility] Comment on above: Performed By: #### C BC #### [facility] [address] [place] [address] Dr. Eliseo Olguin Monocytes/100 WBC (Bld) 9.9 % Normal 1.7-12.0 [facility] Comment on above: Performed By: #### C BC #### [facility] [address] [place] [address] Dr. Eliseo Olguin NEUT # 2.7 103/ul Normal 1.4-6.5 [facility] Comment on above: Performed By: #### C BC #### [facility] [address] [place] [address] Dr. Eliseo Olguin Neutrophils/100 WBC (Bld) 52.5 % Normal 43.0-75.0 [facility] Comment on above: Performed By: #### C BC #### [facility] [address] [place] [address] Dr. Eliseo Olguin Platelet mean volume (Bld) [Entitic vol] 8.8 fL Critically low 9.5-13.5 [facility] Comment on above: Performed By: #### C BC #### [facility] [address] [place] [address] Dr. Eliseo Olguin PLT 278 103/ul Normal 150-450 [facility] Comment on above: Performed By: #### C BC #### [facility] [address] [place] [address] Dr. Eliseo Olguin RBC 5.69 106/ul Normal 4.70-6.10 [facility] Comment on above: Performed By: #### C BC #### [facility] [address] [place] [address] Dr. Eliseo Olguin WBC 5.1 103/ul Normal 4.0-11.0 [facility] Comment on above: Performed By: #### C BC #### [facility] [address] [place] [address] Dr. Eliseo Olguin [facility]on SARS-CoV-2 (COVID-19) RNA MEHNAZ+probe Ql (Unsp spec) Not detected Normal NOT DETECTED [facility] Comment on above: Result Comment: This test is not yet approved or cleared by the [place] FDA. When there are no FDA-approved or cleared tests available, and other criteria are met, FDA can make tests available under an emergency access mechanism called an Emergency Use Authorization (EUA). The EUA for this test is supported by the [place] of Health and Human Service's (HHS's) declaration that circumstances exist to justify the emergency use of in vitro diagnostics for the detection and/or diagnosis of the virus that causes COVID-19. This EUA will remain in effect (meaning this test can be used) for the duration of the COVID-19 declaration justifying emergency of IVDs, unless it is terminated or revoked by FDA (after which the test may no longer be used). When diagnostic testing is negative, the possibility of a false negative should be considered in the context of a patient's recent exposures and the presence of clinical signs and symptoms consistent with SARS-CoV-2. Performed By: #### C VDTB #### [facility] [address] [place] [address] Dr. Eliseo Olguin DRUG SCREEN RAPID (URINE)on 05-26-2021 AMP Negative Normal NEGATIVE [facility] Comment on above: Performed By: #### S ALYC, ACET, CMP #### [facility] [address] [place] [address] Dr. Eliseo Olguin BAR Negative Normal NEGATIVE [facility] Comment on above: Performed By: #### S ALYC, ACET, CMP #### [facility] [address] [place] [address] Dr. Eliseo Olguin BUP Negative Normal NEGATIVE [facility] Comment on above: Performed By: #### S ALYC, ACET, CMP #### [facility] [address] [place] [address] Dr. Eliseo Olguin BZO Negative Normal NEGATIVE [facility] Comment on above: Performed By: #### S ALYC, ACET, CMP #### [facility] [address] [place] [address] Dr. Eliseo Olguin RAQUEL Negative Normal NEGATIVE [facility] Comment on above: Performed By: #### S ALYC, ACET, CMP #### [facility] [address] [place] [address] Dr. Eliseo Olguin CUT-OFFS SEE BELOW Normal [facility] Comment on above: Result Comment: AMP (Amphetamine): 500ng/mL, BAR (Barbituates): 200 ng/mL, BZO (Benzodiazepines): 150 ng/mL, BUP (Buprenorphine): 10 ng/mL, RAQUEL (Cocaine): 150 ng/mL, mAMP (Methamphetamine): 500 ng/mL, MTD (Methadone): 200 ng/mL, OPI (Opiates): 100 ng/mL, OXY (Oxycodone): 100 ng/mL, PCP (Phencyclidine): 25 ng/mL, PPX (Propoxyphene): 300 ng/mL, THC (Cannabinoids): 50 ng/mL, TCA (Trycyclic Antidepressants): 300 ng/mL Performed By: #### S ALYC, ACET, CMP #### [facility] [address] [place] [address] Dr. Eliseo Olguin DRUG CUT HEADER DRUG CLASS TEST SYSTEM CUT-OFF CONCENTRATIONS ARE FOLLOWS: Normal [facility] Comment on above: Performed By: #### S ALYC, ACET, CMP #### [facility] [address] [place] [address] Dr. Eliseo Olguin mAMP Negative Normal NEGATIVE [facility] Comment on above: Performed By: #### S ALYC, ACET, CMP #### [facility] [address] [place] [address] Dr. Eliseo Olguin MTD Negative Normal NEGATIVE [facility] Comment on above: Performed By: #### S ALYC, ACET, CMP #### [facility] [address] [place] [address] Dr. Eliseo Olguin OPI Negative Normal NEGATIVE [facility] Comment on above: Performed By: #### S ALYC, ACET, CMP #### [facility] [address] [place] [address] Dr. Eliseo Olguin OXY Negative Normal NEGATIVE [facility] Comment on above: Performed By: #### S ALYC, ACET, CMP #### [facility] [address] [place] [address] Dr. Eliseo Olguin PCP Negative Normal NEGATIVE [facility] Comment on above: Performed By: #### S ALYC, ACET, CMP #### [facility] [address] [place] [address] Dr. Eliseo Olguin PPX Negative Normal NEGATIVE [facility] Comment on above: Performed By: #### S ALYC, ACET, CMP #### [facility] [address] [place] [address] Dr. Eliseo Olguin TCA Negative Normal NEGATIVE [facility] Comment on above: Performed By: #### S ALYC, ACET, CMP #### [facility] [address] [place] [address] Dr. Eliseo Olguin THC Negative Normal NEGATIVE [facility] Comment on above: Performed By: #### S ALYC, ACET, CMP #### [facility] [address] [place] [address] Dr. Eliseo Olguin ER URINE PROFILEon 2 Bilirubin Ql (U) Negative Normal NEGATIVE [facility] Comment on above: Performed By: #### S ALYC, ACET, CMP #### [facility] [address] [place] [address] Dr. Eliseo Olguin Clarity (U) CLEAR Normal CLEAR [facility] Comment on above: Performed By: #### S ALYC, ACET, CMP #### [facility] [address] [place] [address] Dr. Eliseo Olguin Color (U) LT. YELLOW Normal YELLOW [facility] Comment on above: Performed By: #### S ALYC, ACET, CMP #### [facility] [address] [place] [address] Dr. Eliseo Olguin ERUAHD A micrscopic examination will be performed if indicated. Normal [facility] Comment on above: Performed By: #### S ALYC, ACET, CMP #### [facility] [address] [place] [address] Dr. Eliseo Olguin Glucose Ql (U) Negative Normal NEGATIVE [facility] Comment on above: Performed By: #### S ALYC, ACET, CMP #### [facility] [address] [place] [address] Dr. Eliseo Olguin Hemoglobin Ql (U) TRACE-INTACT Abnormal NEGATIVE [facility] Comment on above: Performed By: #### S ALYC, ACET, CMP #### [facility] [address] [address] [address] Eliseo Olguin Ketones Ql (U) 15 mg/dl Abnormal NEGATIVE [facility] Comment on above: Performed By: #### S ALYC, ACET, CMP #### [facility] [address] [place] [address] Dr. Eliseo Olguin LEUKOCYTES Negative Normal NEGATIVE [facility] Comment on above: Performed By: #### S ALYC, ACET, CMP #### [facility] [address] [address] [address] Eliseo Olguin Nitrite Ql (U) Negative Normal NEGATIVE [facility] Comment on above: Performed By: #### S ALYC, ACET, CMP #### [facility] [address] [place] [address] Dr. Eliseo Olguin pH (U) 6.0 [pH] Normal 5-9 [facility] Comment on above: Performed By: #### S ALYC, ACET, CMP #### [facility] [address] [place] [address] Dr. Eliseo Olguin Protein (U) [Mass/Vol] 100 mg/dL Abnormal NEGAT GRAHAM/ TRACE [facility] Comment on above: Performed By: #### S ALYC, ACET, CMP #### [facility] [address] [place] [address] Dr. Eliseo Olguin SPEC GRAVITY 1.015 Normal 1.005-<=1.02 5 [facility] Comment on above: Performed By: #### S ALYC, ACET, CMP #### [facility] [address] [place] [address] Dr. Eliseo Olguin UR MICRO IND INDICATED Normal [facility] Comment on above: Performed By: #### S ALYC, ACET, CMP #### [facility] [address] [place] [address] Dr. Eliseo Olguin Urobilinogen Qn (U) 0.2 {Elma'U}/dL Normal 0.2 - 1. 0 [facility] Comment on above: Performed By: #### S ALYC, ACET, CMP #### [facility] [address] [place] [address] Dr. Eliseo Olguin ETHANOL (BLD ALC)on 05-27-19 22 ALC NOTE NOTE: 80 mg/dl is th e legal limit for a blood alcohol level Normal [facility] Comment on above: Performed By: #### E TH #### [facility] [address] [place] [address] Dr. Eliseo Olguin Ethanol [Mass/Vol] mg/dL Normal [facility] Comment on above: Result Comment: Prev iously reported as: 364 On 05/26/2021 19:41 By JAW Performed By: #### E TH #### [facility] [address] [place] [address] Dr. Eliseo Olguin INFLUENZA A AND B AGon 05-26 INFLUANEGH SEE BELOW Normal [facility] Comment on above: Result Comment: Nega tive for Flu A protein angiten. Infection due to Flu A cannot be ruled out. Flu A angiten in the sample may be below the detection limit of the test. Performed By: #### I NFLUAB #### [facility] [address] [place] [address] Dr. Eliseo Olguin INFLUBNEGH SEE BELOW Normal [facility] Comment on above: Result Comment: Nega tive for Flu B protein antigen. Infection due to Flu B cannot be ruled out. Flu B antigen in the sample may be below the detection limit of the test. Performed By: #### I NFLUAB #### [facility] [address] [place] [address] Dr. Eliseo Olguin INFLUENZA A AG Negative Normal NEGATIVE SEE COMMENT [facility] Comment on above: Performed By: #### I NFLUAB #### [facility] [address] [place] [address] Dr. Eliseo Olguin INFLUENZA B AG Negative Normal NEGATIVE SEE COMMENT [facility] Comment on above: Performed By: #### I NFLUAB #### [facility] [address] [place] [address] Dr. Eliseo Olguin INTERNAL CONTROLS Within Normal Limits Normal Wi thin Normal Limits [facility] Comment on above: Performed By: #### I NFLUAB #### [facility] [address] [address] [address] Eliseo Olguin MAGNESIUMon 05-26-2021 Magnesium [Mass/Vol] 2.2 mg/dL Normal 1.6-2.3 [facility] Comment on above: Performed By: #### M G #### [facility] [address] [address] [address] Eliseo Olguin PROF 14(COMP METB)on 022 Albumin [Mass/Vol] 4.6 g/dL Normal 3.4-5.0 [facility] Comment on above: Performed By: #### S J LUIS TENORIO, CMP #### [facility] [address] [address] [address] Eliseo Olguin Albumin/Globulin [Mass ratio] 1.0 {ratio} Normal [facility] Comment on above: Performed By: #### S JONA ACET, CMP #### [facility] [address] [address] [address] Eliseo Olguin ALP [Catalytic activity/Vol] 84 U/L Normal 46-116 [facility] Comment on above: Performed By: #### S JONA ACET, CMP #### [facility] [address] [address] [address] Eliseo Olguin ALT [Catalytic activity/Vol] 140 U/L Critically high 16-63 [facility] Comment on above: Performed By: #### S JONA ACET, CMP #### [facility] [address] [address] [address] Eliseo Olguin Anion gap [Moles/Vol] 23.7 mmol/L Normal [facility] Comment on above: Performed By: #### S ALWENDY ACET, CMP #### [facility] [address] [address] [address] Eliseo Olguin AST [Catalytic activity/Vol] 82 U/L Critically high 15-37 [facility] Comment on above: Performed By: #### S ALWENDY ACET, CMP #### [facility] [address] [address] [address] Eliseo Olguin Bilirubin [Mass/Vol] 1.4 mg/dL Critically high 0.2-1.3 [facility] Comment on above: Performed By: #### S ALYC, ACET, CMP #### [facility] [address] [address] [address] Eliseo Olguin Calcium [Mass/Vol] 8.9 mg/dL Normal 8.5-10.1 [facility] Comment on above: Performed By: #### S ALYC, ACET, CMP #### [facility] [address] [address] [address] Eliseo Olguin Chloride [Moles/Vol] 95 mmol/L Critically low 98-107 [facility] Comment on above: Performed By: #### S ALYC, ACET, CMP #### [facility] [address] [place] [address] Dr. Eliseo Olguin CO2 [Moles/Vol] 21.1 mmol/L Critically low 22.0-30.0 [facility] Comment on above: Performed By: #### S ALYC, ACET, CMP #### [facility] [address] [address] [address] Eliseo Olguin Creatinine [Mass/Vol] 0.95 mg/dL Normal 0.66-1.25 [facility] Comment on above: Performed By: #### S ALYC, ACET, CMP #### [facility] [address] [place] [address] Dr. Eliseo Olguin EGFR-AF GHANAIAN >60 Normal >=60 [facility] Comment on above: Performed By: #### S ALYC, ACET, CMP #### [facility] [address] [address] [address] Eliseo Olguin EGFR-NON AF GHANAIAN >60 Normal >=60 [facility] Comment on above: Performed By: #### S ALYC, ACET, CMP #### [facility] [address] [place] [address] Dr. Eliseo Olguin Globulin (S) [Mass/Vol] 4.4 g/dL Normal [facility] Comment on above: Performed By: #### S ALYC, ACET, CMP #### [facility] [address] [address] [address] Eliseo Olguin Glucose [Mass/Vol] 146 mg/dL Critically high 74-106 [facility] Comment on above: Performed By: #### S ALYC, ACET, CMP #### [facility] [address] [address] [address] Eliseo Olguin Potassium [Moles/Vol] 3.8 mmol/L Normal 3.4-5.0 [facility] Comment on above: Performed By: #### S ALYC, ACET, CMP #### [facility] [address] [address] [address] Eliseo Olguin Protein [Mass/Vol] 9.0 g/dL Critically high 6.1-8.2 [facility] Comment on above: Performed By: #### S ALYC, ACET, CMP #### [facility] [address] [address] [address] Eliseo Olguin Sodium [Moles/Vol] 136 mmol/L Critically low 137-145 [facility] Comment on above: Performed By: #### S ALYC, ACET, CMP #### [facility] [address] [address] [address] Eliseo Olguin Urea nitrogen [Mass/Vol] 13.0 mg/dL Normal 7.0-18.0 [facility] Comment on above: Performed By: #### S ALYC, ACET, CMP #### [facility] [address] [address] [address] Eliseo Olguni Urea nitrogen/Creatinine [Mass ratio] 13.7 mg/mg Normal [facility] Comment on above: Performed By: #### S ALYC, ACET, CMP #### [facility] [address] [place] [address] Dr. Eliseo Olguin SALICYLATEon 05-26-2021 SALICYLATE <1.0 Normal <=20.0 [facility] Comment on above: Performed By: #### S ALYC, ACET, CMP #### [facility] [address] [place] [address] Dr. Eliseo Olguin URINE MICROSCOPIC ONLYon BACTERIA NONE SEEN Normal NONE SEEN [facility] Comment on above: Performed By: #### S ALYC, ACET, CMP #### [facility] [address] [place] [address] Dr. Eliseo Olguin Bacteria identified Cx Nom (U) NOT INDICATED Normal [facility] Comment on above: Performed By: #### S ALYC, ACET, CMP #### [facility] [address] [place] [address] Dr. Eliseo Olguin CAST SEEN Abnormal NONE SEEN [facility] Comment on above: Performed By: #### S ALYC, ACET, CMP #### [facility] [address] [place] [address] Dr. Eliseo Olguin COARSE GRANULAR CAST FEW Normal [facility] Comment on above: Performed By: #### S ALYC, ACET, CMP #### [facility] [address] [place] [address] Dr. Eliseo Olguin Crystals LM Nom (Urine sed) NONE SEEN Normal NONE SEEN [facility] Comment on above: Performed By: #### S ALYC, ACET, CMP #### [facility] [address] [place] [address] Dr. Eliseo Olguin Epithelial cells LM Ql (Urine sed) RARE Normal NONE SEEN /RARE [facility] Comment on above: Performed By: #### S ALYC, ACET, CMP #### [facility] [address] [place] [address] Dr. Eliseo Olguin HYALINE CAST FEW Normal [facility] Comment on above: Performed By: #### S ALYC, ACET, CMP #### [facility] [address] [place] [address] Dr. Eliseo Olguin MUCOUS TRACE Abnormal NONE SEEN [facility] Comment on above: Performed By: #### S ALYC, ACET, CMP #### [facility] [address] [place] [address] Dr. Eliseo Olguin RBC 0-2 Normal 0-2 [facility] Comment on above: Performed By: #### S ALYC, ACET, CMP #### [facility] [address] [address] [address] Eliseo Olguin WBC 0-2 Abnormal NONE SEEN [facility] Comment on above: Performed By: #### S JONA ACET, CMP #### [facility] [address] [address] [address] Eliseo Olguin [facility] [place] 09-15-2020 Albumin [Mass/Vol] 4.7 g/dL Normal 3.6-5.1 [facility] Comment on above: Performed By: #### 1 0231, 7600 #### [facility] [address] [address] Massage Therapist: Monster Knight MD Albumin/Globulin [Mass ratio] 1.7 {ratio} Normal 1.0-2.5 [facility] Comment on above: Performed By: #### 1 0231, 7600 #### [facility] [address] [place] [address] Massage Therapist: Monster Knight MD ALP [Catalytic activity/Vol] 57 U/L Normal 36-130 [facility] Comment on above: Performed By: #### 1 0231, 7600 #### [facility] [address] [place] [address] Massage Therapist: Monster Knight MD ALT [Catalytic activity/Vol] 48 U/L High 9-46 [facility] Comment on above: Performed By: #### 1 0231, 7600 #### [facility] of [address] [address] Massage Therapist: Monster Knight MD AST [Catalytic activity/Vol] 35 U/L Normal 10-40 [facility] Comment on above: Performed By: #### 1 0231, 7600 #### [facility] of [address] [address] Massage Therapist: Monster Knight MD Bilirubin [Mass/Vol] 1.0 mg/dL Normal 0.2-1.2 [facility] Comment on above: Performed By: #### 1 0231, 7600 #### [facility] of [address], [address] [place] [address] Massage Therapist: Monster Knight MD BUN/CREATININE RATIO NOT APPLICABLE Normal 6-22 [facility] Comment on above: Performed By: #### 1 0231, 7600 #### [facility] of [address], [address] [place] [address] Massage Therapist: Monster Knight MD Calcium [Mass/Vol] 9.5 mg/dL Normal 8.6-10.3 [facility] Comment on above: Performed By: #### 1 023, 7600 #### [facility] of [address] [address] Massage Therapist: Monster Knight MD Chloride [Moles/Vol] 102 mmol/L Normal 98-110 [facility] Comment on above: Performed By: #### 1 023, 7600 #### [facility] [address], [address] [place] [address] Massage Therapist: Monster Knight MD CO2 [Moles/Vol] 28 mmol/L Normal 20-32 [facility] Comment on above: Performed By: #### 1 0231, 7600 #### [facility] [address] [address] Massage Therapist: Monster Knight MD Creatinine [Mass/Vol] 0.87 mg/dL Normal 0.60-1.[address] [facility] [address] [facility] Comment on above: Performed By: #### 1 023, 7600 #### [facility] [address] [address] Massage Therapist: Monster Knight MD eGFR NON-AFR. GHANAIAN 109 mL/min/1.73m2 Normal > OR = 60 [facility] Comment on above: Performed By: #### 1 0231, 7600 #### [facility] of [address] [address] Massage Therapist: Monster Knight MD GFR/1.73 sq M.predicted among blacks MDRD (S/P/Bld) [Vol rate/Area] 126 mL/min/{1.73_m2} Normal > OR = 60 [facility] Comment on above: Performed By: #### 1 023, 7600 #### [facility] [address], [address] [place] [address] Massage Therapist: Monster Knight MD Globulin (S) [Mass/Vol] 2.7 g/dL Normal 1.9-3.7 [facility] Comment on above: Performed By: #### 1 023, 7600 #### [facility] [address], [address] [place] [address] Massage Therapist: Monster Knight MD Glucose [Mass/Vol] 125 mg/dL High 65-99 [facility] Comment on above: Result Comment: Fasting reference interval For someone without known diabetes, a glucose value between 100 and 125 mg/dL is consistent with prediabetes and should be confirmed with a follow-up test. Performed By: #### 1 023, 0 #### [facility] [address], [address] [place] [address] Massage Therapist: Monster Knight MD Potassium [Moles/Vol] 4.1 mmol/L Normal 3.5-5.[address] [facility] Comment on above: Performed By: #### 1 023, 7600 #### [facility] [address] [place] [address] Massage Therapist: Monster Knight MD Protein [Mass/Vol] 7.4 g/dL Normal 6.1-8.1 [facility] Comment on above: Performed By: #### 1 023, 7600 #### [facility] [address] [address] Massage Therapist: Monster Knight MD Sodium [Moles/Vol] 142 mmol/L Normal 135-146 [facility] Comment on above: Performed By: #### 1 023, 7600 #### [facility] [address], [address] [place] [address] Massage Therapist: Monster Knight MD Urea nitrogen [Mass/Vol] 14 mg/dL Normal 7-25 [facility] Comment on above: Performed By: #### 1 0231, 7600 #### [facility] [address], [address] [place] [address] Massage Therapist: Monster Knight MD LIPID PANEL, [facility] 07-2 Cholesterol [Mass/Vol] 198 mg/dL Normal <200 [facility] Comment on above: Order Comment: FASTI NG:YES FASTING: YES Performed By: #### 1 0231, 7600 #### [facility] [address], [address] [place] [address] Massage Therapist: Monster Knight MD Cholesterol in HDL [Mass/Vol] 81 mg/dL Normal > OR = 40 [facility] Comment on above: Order Comment: FASTI NG:YES FASTING: YES Performed By: #### 1 023, 0 #### [facility] [address], [address] [place] [address] Massage Therapist: Monster Knight MD Cholesterol in LDL [Mass/Vol] 73 mg/dL Normal [facility] Comment on above: Order Comment: FASTI NG:YES FASTING: YES Result Comment: Refe rence range: <100 Desirable range <100 mg/dL for primary prevention; <70 mg/dL for patients with CHD or diabetic patients with > or = 2 CHD risk factors. LDL-C is now calculated using the Rashi-Valentino calculation, which is a validated novel method providing better accuracy than the Friedewald equation in the estimation of LDL-C. Rashi OLSON et al. NATE. 2013;310(19): 4176-7757 (http://education.[employer])/faq/EWT349) Performed By: #### 1 0231, 7600 #### [facility] [address], [address] [place] [address] Massage Therapist: Monster Knight MD Cholesterol.total/Chol esterol in HDL [Mass ratio] 2.4 {ratio} Normal <5.0 [facility] Comment on above: Order Comment: FASTI NG:YES FASTING: YES Performed By: #### 1 0231, 0 #### [facility] [address] [place] [address], [address] [place] [address] Massage Therapist: Monster Knight MD NON HDL CHOLESTEROL 117 mg/dL (calc) Normal <130 [facility] Comment on above: Order Comment: FASTI NG:YES FASTING: YES Result Comment: For patients with diabetes plus 1 major ASCVD risk factor, treating to a non-HDL-C goal of <100 mg/dL (LDL-C of <70 mg/dL) is considered a therapeutic option. Performed By: #### 1 0231, 7600 #### [facility] [address], [address] [id number] Massage Therapist: Monster Knight MD Triglyceride [Mass/Vol] 362 mg/dL High <150 [facility] Comment on above: Order Comment: FASTI NG:YES FASTING: YES Result Comment: If a non-fasting specimen was collected, consider repeat triglyceride testing on a fasting specimen if clinically indicated. Andrzej et al. J. of Clin. Lipidol. 2015;9:129-169. Performed By: #### 1 023, 7600 #### [facility] [address], [address] [place], [place] [id number] Massage Therapist: Monster Knight MD Vital Signs Date Time Vital Sign Value Performing Clinician Anais garber 05-31-2021 08:00-0400 Body temperature 97.7 [degF] DO Murphy [employer] Work Phone: [facility] 05-31-2021 08:00-0400 Diastolic blood pressure 77 mm[Hg] DO Murphy Furlong Work Phone: [facility] 05-31-2021 08:00-0400 Heart rate 65 /min DO Murphy Furlong Work Phone: [facility] 05-31-2021 08:00-0400 Respiratory rate 16 /min DO Murphy Furlong Work Phone: [facility] 05-31-2021 08:00-0400 SaO2% (BldA) [Mass fraction] 97 % DO Murphy Furlong Work Phone: [facility] 05-31-2021 08:00-0400 Systolic blood pressure 114 mm[Hg] DO Murphy Mcginnislong Work Phone: [facility] 05-29-2021 09:00-0400 Body weight 90.03 kg DO Murphy Mcginnislong Work Phone: [facility] 05-28-2021 12:33-0400 Body height 180.34 cm DO Murphy Mcginnislong Work Phone: [facility] 05-27-2021 16:12-0400 Body mass index (BMI) [Ratio] 27.8 kg/m2 DO Murphy Mcginnislong Work Phone: [facility] Encounters Encounter Date Encounter Type Care Provider Facility Start: 06-26-2023 End: 06-26-2023 ambulatory [facility] Start: 05-27-2021 End: 05-31-2021 Evaluation and management of inpatient Murphy So Facility:[facility] Start: 05-27-2021 End: 05-31-2021 Evaluation and management of inpatient DO Murphy So Work Phone: [facility] Start: 05-26-2021 End: 05-27-[address] MURPHY Navarro [facility] Facility: Plan of Treatment Date Care Activity Detail Author Patient Education Depression, Ad ult (DC) [facility] [place] Instructions [facility] Work Phone: Patient referral [facility] Work Phone: Payers Date Payer Category Payer Unknown [id number] 2021 Self-pay [id number] 1980 Unknown [id number] 1980 Unknown [id number] 1959 Unknown [id number] Unknown [id number] Social History Date Type Detail Facility Start: 05-28-2021 Tobacco smoking stat us NHIS Never smoked tobacco (finding) [facility] Start: 1980 Sex Assigned At Male [facility] Functional Status Date Assessment Result Facility 05-31-2021 Functional status Patient at [facility] Work Phone: Mental Status Date Assessment Result Facility 05-31-2021 Cognitive function Cognitive Sta tus Patient at Baseline [facility] Work Phone: Discharge summary 05-31-2021 Note Date & Type Note Facility 05-31-2021 Discharge summary Note Date/Time May 31, 2021 8:47am [facility] [address] [place] [address] Discharge Summary Signed Patient: Omid English MR#: [id number] : 1980 Acct:[id number] Age/Sex: 40 / M Adm Date: 2 Loc: Room: [address] [place] [address]: Akash Greenfield MD Copies to: MD Akash Watts MD Dennis G Furlong,DO~ Providers Date of Discharge: 05/31/21 Discharging Provider: Grupreet Calderón Primary Care Provider: Murphy So Consults: 05/27/21 16:43 Consult to Case Management Routine Consult to Sleep Lab Routine 05/27/21 16:52 Consult to Dietitian Routine Discharge Diagnosis (1) Major depressive disorder, recurrent: (2) Alcohol use disorder: Final Diagnosis Final Discharge Diagnosis: MDD AUD Summary Hospital Course Hospital course: froy English is a 40 year old male who presented due to concern for depression andsuicidal ideation.? He stated that he would shoot himself.? He reported that he has access to weapons Upon assessment, patient reported that he was having some suicidal thoughts.? Hereported that he called the suicide hotline.? He reported that he was feeling very sad and stated that he would shoot himself.? He stated that he does have access to a gun and would be able to get 1.? Reported that he has been experiencing financial stressors.? He reported that he has been feeling depressed and anxious.? He reported that his sleep and appetite have been okay.?He denied any hallucinations at this time. Past psych history: Denies Past hospitalizations: Denies Past suicide attempts: Denies Family psych history: Denies Previous medications: Denies Alcohol and drug use: Reported heavy alcohol use Living: With parents Employment: employed Review of symptoms: Constitutional: Denies chills and Denies fever(s) Eyes: Denies change in vision ENT: Denies abnormal hearing Cardiovascular: Denies chest pain Respiratory: Denies chest congestion and Denies cough Gastrointestinal: Denies change in bowel habits Genitourinary: Denies dysuria Musculoskeletal: Denies atrophy and Denies myalgias Integumentary/Breasts: Denies dry skin Neurologic: Denies abnormal gait and Denies abnormal movements Psychiatric: Reports depression and suicidal ideation Course of Treatment The patient was familiar with the mental health therapy services available to him while on the unit and was encouraged to participate. Patient reported that he has been feeing depressed due to financial stressors. He also admitted to self medicating with his alcohol. Patient was started on Librium taper to help with alcohol withdrawal symptoms. He was also motivated to start an antidepressant to feel better. Lexapro was started which was titrated up gradually to 10 mg p.o. daily he felt that his symptoms have improved on the current medication regimen. He has been compliant with treatment and reported noside effects. His sleep and appetite were okay. The patient was attending groups and described them as helpful in building coping skills. He denied any access to firearms or lethal weapons. He felt better than before coming to the hospital and feels hopeful about his future. He rated his depression at 1/10 and anxiety at 2/10, with ten being the worst. He did not exhibit any disorganized behavior nor appeared to be experiencing auditory hallucinations or expressing delusions. He did not show any behavior concerning for chance. He understands the importance of outpatient therapy to ensure the stability of symptoms. He denied suicidal or homicidal ideation and verbalized the intent to notify the staff if he has such thoughts. No suicidal or self-injurious behaviors occurred during inpatient treatment. His dad was able t secure the gun and patient reports having no access to guns. I explained to the patient that his discharge from the hospital does not mean that his medical care ends here. He needs consistent outpatient follow-up, cognitive behavioral therapy, and treatment plan to be handled from this point on by out patient providers including but noted limited to outpatient psychiatrist, primary care team and specialists. His three wishes include live a long life, becoming mentally stable and making good money Discharge disposition coordinated by case management Safe discharge Planning: With the cessation of all suicidal ideation, improvements in mood, and with a cessation of any psychotic process, aftercare plans were solidified. The patient was able to formulate a believable safety plan. Discharge plans were discussed with the patient, his family, and the treatment team. All agreed withthe discharge plan. On the day of discharge, he was evaluated and had no complaints. He denied any SI/HI. He felt hopeful, motivated and agreed to follow up with outpatient treatment as arranged by case management. Suicide risk assessment: A thorough review of protective and risk factors was conducted during this admission. Discussed with the patient the following recommendations that would help reduce suicide which include limiting the numberof pills to a 14-day supply with one refill at the time of discharge to avoid potential overdose, involving family members in his care, consistent outpatient follow up preferably within seven days of release, and his desire to live. He reported a good therapeutic alliance, good response to medication management andtherapy, availability of local mental health services and willingness to follow up, lack of suicidal ideation, behvaior, intent or plan, lack of impulsivity, agitation, or psychosis. Pt is future-oriented and understands the importance ofoutpatient follow-up. The presence of positive factors like family and beryl, lack of access to firearms, and desire to continue his treatment is consistent with a safe discharge plan. Given the chronic risk of suicide, we discussed a plan to help him long-term safety. The patient is not suicidal or psychotic now. To help decrease his suicide risk, as best I can, I am referring him for outpatient treatment inlcuding but not limited to medication management for long-term follow-up to have somewhere to go and someone to manage him as symptoms and stressors develop. This is the best way to keep him alive. So, we discussed a crisis plan for future suicidality: at the first sign of distress, he will call the hotline; if this is not sufficient, he will 911, then call family members or friends; ultimately, he will come to the ER. MSE: Orientation: Alert and oriented to person, place, and time. Appearance/Behavior: Fair grooming and hygiene, calm, cooperative, engaged in the interview. Good eye contact. Normal psychomotor activity. Speech: regular rate, rhythm, volume, and tone. Non pressured. Knowledge: Appropriate for age and level of education Mood: okay Affect: reactive, mood-congruent Thought process: linear, logical, and goal-oriented Thought content: No SI/HI. No AVH. No delusions. He does not appear to be responding to internal stimuli. Concentration: Grossly intact based on track during the interview Associations: No loosening of associations Memory: Able to recall recent and remote historical information Insight: Fair, able to appreciate current symptoms and need for outpatient treatment Judgment: fair, agreed to follow treatment recommendations. Safety: The patient is not acutely psychotic, suicidal or homicidal and can continue treatment on an outpatient basis. He was made aware of the 10/09 emergency services of the crisis center and was advised to call 911 or go to the nearest ER in case of a crisis ( (including having thoughts of harming himself or others). Risks (metabolic, EPS, the effect on heart), benefits, and alternatives for all prescribed medications were discussed with the patient. His consent was obtained. He was advised not to drink alcohol while taking medications. Advised the use of drugs can make patient more impuslive leading to poor decisions. Continue supportive therapy with some CBT techniques. Time spent discussing smoking cessation with patient: more than 10 minutes Condition Condition at Discharge: Fair Status at Discharge Functional status at discharge: independent ambulation Time Spent with Patient Time spent providing/coordinating discharge services (# min): 99 Exam Physical Exam Vital Signs: Temp Pulse Resp BP Pulse Ox 98.3 F 62 16 132/77 97 05/30/21 19:17 05/30/21 19:17 05/30/21 19:17 05/30/21 19:17 05/30/21 19:17 Discharge Plan Discharge Plan Activity: No Activity Restriction Diet: Regular Stand Alone Forms: Work/School Release Form Prescriptions: New hydroxyzine pamoate 50 mg Capsule 50 mg PO Q6H PRN (Reason: Anxiety) 15 Days Qty: 30 RF: 0 escitalopram oxalate 10 mg Tablet 10 mg PO DAILY 15 Days Qty: 15 RF: 1 Follow Up: [facility] [Outside] ( apartment assistant manager: (Insert date/time here) Therapy:? (insert date/time here) Intake: (Insert date/time here) Please bring a copy of your photo ID, insurance card, and proof of household income.? Psychiatry: (Insert date/time here) Group: (Insert date/time here ) ) Documented By: Eliud Calderón MD 2 [id number] Signed By: <Electronically signed by Eliud Calderón MD> 05/31/21 0847 [facility] Work Phone: Progress note 05-30-2021 Note Date & Type Note Facility 05-30-2021 Progress note Note Date/Time May 30, 2021 8:57am [facility] [address] [place] [address] Psychiatry Progress Note Signed Patient: Omid English MR#: [id number] : 1980 Acct:[id number] Age/Sex: 40 / M Adm Date: 2 Loc: Room: [address] [place] [address] Type : ADM IN Attending Dr: Akash Greenfield MD Copies to: ~ Date of Service: 05/30/2021 Subjective Subjective Narrative: Mr. English is currently functioning at his baseline. He is doing fairly well. The patient reports improved mood and appetite, improved ability to enjoy certain activities, reduction of feelings of worthlessness or guilt, and improved focus and concentration. He continues to struggle with anxiety occasionally. He received his last dose of Librium tonight for alcohol withdrawal He is tolerating the current medication regimen without any major side effects. He denied current SI/HI and verbalized the intent to notify staff if he has suchthoughts. He denied any suicidal or self-injurious behaviors. I did talk with him about the importance of medication compliance as he believes the medicationsmade a good difference. Sleep and appetite are ok. He stated that his father locked the guns and patient has no access to them at this time. Mental Status Exam: Appearance: grossly normal Mental Status: mental status grossly normal Mood: ok mood Affect: reactive affect Speech and Movement: speech and movement normal and speech clear Attitude: cooperative Thought Process: normal Thought Content: Denied hallucinations, no homicidality, no suicidality Insight: fair Judgment: fair Exam Physical Exam Vital Signs: Temp Pulse Resp BP Pulse Ox 98.1 F 57 L 16 128/80 99 05/30/21 00:00 05/30/21 04:00 05/29/21 20:00 05/30/21 04:00 05/30/21 04:00 Assessment/Plan Assessment/Plan (1) Major depressive disorder, recurrent: Code(s): F33.9 - Major depressive disorder, recurrent, unspecified Status: Acute (2) Alcohol use disorder: Status: Acute Plan Patient reports he is feeling better. The patient denies current suicidal or homicidal ideation, and verbalized the intent to notify staff if he has such thoughts. The patient denies recent suicidal or self injurious behaviors. Continue Lexapro 10 mg daily to help manage his depression and anxiety Continue Librium 10 mg at bedtime. Tonight will be the last dose Continue to monitor mental status Encourage group participation and medication compliance Risk benefits alternatives explained Documented By: Eliud Calderón MD 2 [id number] Signed By: <Electronically signed by Eliud Calderón MD> 05/30/21 0857 [facility] Work Phone: Progress note 05-29-2021 Note Date & Type Note Facility 05-29-2021 Progress note Note Date/Time May 29, 2021 8:55am [facility] [address] [place] [address] Psychiatry Progress Note Signed Patient: Omid English MR#: [id number] : 1980 Acct:[id number] Age/Sex: 40 / M Adm Date: 2 Loc: Room: 3C6768-6 Type : ADM IN Attending Dr: Akash Greenfield MD Copies to: ~ Date of Service: 05/29/2021 Subjective Subjective Narrative: Mr. English reports that his depression and anxiety are ongoing but stabilizing gradually on the current medication regimen. Anxiety is moderate in intensity with attempted utilization of coping skills. He denies SI/HI and verbalized theintent to notify staff if he has such thoughts. He continues to be compliant with prescribed medications and is visible within the unit milieu. He alluded to psychosocial stressors being the primary issue that he is struggling with. He denied symptoms of alcohol withdrawal today. I discussed with him the benefits of switching to the front unit to attend more groups and build better coping skills. We have agreed to continue the current medications regimen. Risks, benefits, andindications of medications were discussed. Mental Status Exam: Appearance: grossly normal Mental Status: mental status grossly normal Mood: dysthymic mood Affect: dysphoric affect Speech and Movement: speech and movement normal and speech clear Attitude: cooperative Thought Process: normal Thought Content: Denied hallucinations, no homicidality, no suicidality Insight: fair Judgment: fair Exam Physical Exam Vital Signs: Temp Pulse Resp BP Pulse Ox 97.8 F 99 H 16 141/96 H 99 05/29/21 08:00 05/29/21 08:00 05/29/21 08:00 05/29/21 08:00 05/29/21 08:00 Objective Labs Labs: Abnormal Labs 05/28/21 07:36 25-OH Vitamin D Total 14.3 L Assessment/Plan Assessment/Plan (1) Major depressive disorder, recurrent: Code(s): F33.9 - Major depressive disorder, recurrent, unspecified Status: Acute (2) Alcohol use disorder: Status: Acute Plan Patient reports his depression is starting to improve. He was intoxicated when he first called but still reported some depression symptoms Continue Lexapro 10 mg daily to help manage his depression and anxiety Continue Librium 10 mg twice a day Continue to monitor mental status Encourage group participation and medication compliance Risk benefits alternatives explained Documented By: Eliud Calderón MD 2 [id number] Signed By: <Electronically signed by Eliud Calderón MD> 05/29/21 0855 [facility] Work Phone: History and physical note 05-28-2021 Note Date & Type Note Facility 05-28-2021 History and physi alana note Note Date/Time May 28, 2021 11:59am [facility] [address] [place] [address] Psychiatry H&P Signed Patient: Omid English MR#: [id number] : 1980 Acct:[id number] Age/Sex: 40 / M Adm Date: 2 Loc: Room: 3K5145-0 Type : ADM IN Attending Dr: Akash Greenfield MD Copies to: Akash Greenfield MD Murphy So~ Date of Service: 05/28/2021 HPI History of Present Illness History of present illness: Mr. English is a 40 year old male who presented due to concern for depression and suicidal ideation. He stated that he would shoot himself. He reported thathe has access to weapons Upon assessment, patient reported that he was having some suicidal thoughts. Hereported that he called the suicide hotline. He reported that he was feeling very sad and stated that he would shoot himself. He stated that he does have access to a gun and would be able to get 1. Reported that he has been experiencing financial stressors. He reported that he has been feeling depressed and anxious. He reported that his sleep and appetite have been okay. He denied any hallucinations at this time. Past psych history: Denies Past hospitalizations: Denies Past suicide attempts: Denies Family psych history: Denies Previous medications: Denies Alcohol and drug use: Reported heavy alcohol use Living: With parents Employment: employed Review of symptoms: Constitutional: Denies chills and Denies fever(s) Eyes: Denies change in vision ENT: Denies abnormal hearing Cardiovascular: Denies chest pain Respiratory: Denies chest congestion and Denies cough Gastrointestinal: Denies change in bowel habits Genitourinary: Denies dysuria Musculoskeletal: Denies atrophy and Denies myalgias Integumentary/Breasts: Denies dry skin Neurologic: Denies abnormal gait and Denies abnormal movements Psychiatric: Reports depression and suicidal ideation Physical exam: Const: cooperative Nutritional Appearance: average body habitus Orientation: alert, awake and oriented x3 HEENT: Head normal to inspection, hearing grossly normal bilaterally, external nose normal, face symmetric Eyes: appearance normal, both eyes and all related structures, sclerae normal Neck: normal visual inspection and full ROM Resp: normal respiratory effort, able to speak in complete sentences and symmetric chest movement Cardio: regular rate GI: normal to inspection and non-distended : deferred Skin: no rashes or lesions noted Neuro: CNII: Visual martinez intact, CNIII,IV,: EOM intact, no nystagmus. Pupilsequal, round, reactive to light and accommodation, CNV: Sensation intact to light touch, CNVII: Raises eyebrows, smile/frown, puff out cheeks symmetrically, CNVIII: Hearing intact bilaterally, CNIX,X: Voice normal, soft palate elevation normal, symmetrical, CNXI: Shoulder shrug strong, equal bilaterally, CNXII: Tongue protrusion midline, movement symmetrical. Extrem: normal to inspection and full ROM Mental Status Exam: Appearance: grossly normal Mental Status: mental status grossly normal Mood: dysthymic mood Affect: dysphoric affect Speech and Movement: speech and movement normal and speech clear Attitude: cooperative Thought Process: normal Thought Content: Denied hallucinations, no homicidality, reported suicidality Insight: fair Judgment: fair PMFSH Vaccinated for COVID-19?: No Medical History (Updated 05/28/21 @ 11:58 by Akash Greenfield MD) Fracture of left forearm age 16 has pins Hypertension Lazy eye had corrective surgery Surgical History History of hernia surgery 11/08/20 Family History (Updated 05/27/21 @ 16:25 by Aundrea Mcknight RN) Father Stroke Grandparent Diabetes Heart attack GERD (gastroesophageal reflux disease) Social History Smoking Status: Never smoker Substance Use Type: Alcohol Substance Abuse Comment: vodka 02/22 not always finish it Meds Medications and Allergies Allergies Penicillins Allergy (Verified 05/27/21 16:15) Rash Home Medications No known home meds 05/27/21 [History Confirmed 05/27/21] Exam Physical Exam Vital Signs: Temp Pulse Resp BP Pulse Ox 97 F L 78 16 146/106 H 97 05/28/21 07:30 05/28/21 07:30 05/28/21 07:30 05/28/21 07:30 05/28/21 07:30 Assessment/Plan (1) Major depressive disorder, recurrent: Code(s): F33.9 - Major depressive disorder, recurrent, unspecified Status: Acute (2) Alcohol use disorder: Status: Acute Plan Patient presenting due to depression and suicidal ideation. He was intoxicated when he first called but still reported some depression symptoms We will start Lexapro 10 mg daily to help manage his depression and anxiety We will start Librium 10 mg twice a day Continue to monitor mental status Encourage group participation and medication compliance Risk benefits alternatives explained Documented By: Akash Greenfield MD 05/28/21 1156 Signed By: <Electronically signed by Akash Greenfield MD> 05/28/21 1159 [facility] Work Phone: Evaluation note Note Date & Type Note Facility Evaluation note Diagnosis Onset Date Alcohol use disorder acute Major depressive disorder, recurrent acute [facility] Work Phone: Hospital Discharge instructions Note Date & Type Note Facility Hospital Discharge instructions Additional Instructions Regular diet. No activity restrictions. [facility] Work Phone: Summary Purpose Family History No Family History Records Found Relationship Condition Age at Onset Recorded Date/T sally father Cerebrovascular accident (CVA) Unknown grandparent Diabetes mellitus Unknown Myocardial infarction Unknown Gastroesophageal reflux disease Unknown Advance Directives No Advanced Directives Records Found Advance Directive Response Recorded Date/ Time Advance Directives No May 27 1:52pm Chief Complaint and Reason for Visit Chief Complaint MDD Reason for Visit Alcohol use disorder Major depressive disorder, recurrent Additional Source Comments (unrecognized sect ion and content) No Status Records FoundNo Status Records FoundNo Status Records FoundNo Status Records Found INFORMATION SOURCE (unrecogn ized section and content) DATE CREATED AUTHOR 12/18/2020 [facility] DATE CREATED AUTHOR AUTHOR'S ORGANIZ ATION 05/31/2021 [facility] DATE CREATED AUTHOR AUTHOR'S ORGANIZ ATION 03/24/2022 [facility] DATE CREATED AUTHOR AUTHOR'S ORGANIZ ATION 06/28/2023 [facility] Care Teams (unrecognized sec tion and content) Team Status: Inactive Member Role Status Dates Murphy So DO Primary Care Provider Active Akash Greenfield MD Admit Provider, Attending Provider Active Team Status: Active Member Role Status Dates Murphy So DO Primary Care Provider Active Goals (unrecognized section and content) Goals may be documented in a n alternate section FOR RECORDS PERTAINING TO PATIENTS WHO ARE OR HAVE BEEN ENROLLED IN A CHEMICAL DEPENDENCY/SUBSTANCEABUSE PROGRAM, SOME INFORMATION MAY BE OMITTED. This clinical summary was aggregated from multiple sources. Caution should be exercised in using it in the provision of clinical care. This summary normalizes information from multiple sources, and as a consequence, information in this document may materially change the coding, format and clinical context of patient data. In addition, data may be omitted in some cases. CLINICAL DECISIONS SHOULD BE BASED ON THE PRIMARY CLINICAL RECORDS. [employer] [facility]. provides no warranty or guarantee of the accuracy or completeness of information in this document.
== END 2023-07-17 10:41 | disposition home or self-care (01) ==
LOC: EC 10:40
PROVIDERS: PCP Family Medicine; Visit Provider Podiatrist Foot & Ankle Surgery
DX: M25.572 Pain in left ankle and joints of left foot (principal); S82.852D Displaced trimalleolar fracture of left lower leg, subsequent encounter for closed fracture with routine healing
CPT/HCPCS: 73610

== ENCOUNTER 2023-08-28 09:57 | Outpatient (OUT) | payer OTHER, SELFPAY ==
--- NOTE | 2023-08-28 | XR_ITS ---
[address] [address] Patient Name: LUCERO ENGLISH MRN: [id number] date: 1980 Sex: M Assigned Patient Location: Current Patient Location: Accession/Order Number: [id number] Exam Date: 08/28/2023 09:57 Report Date: 08/28/2023 14:03 At the request of: ANGELA RAMIRES Procedure: XR ankle LT min 3V PROCEDURE: XR ankle LT min 3V COMPARISON: 07/17/2023 HISTORY: LEFT ANKLE PAIN FINDINGS: BONES:Stable trimalleolar fracture with open reduction internal fixation of the medial malleolus and distal fibula. No mechanical failure. Some mild bone formation and periosteal reaction. SOFT TISSUES:Mild soft tissue swelling EFFUSION:None visible. OTHER: Negative. XR/XR ankle LT min 3V IMPRESSION: Stable healing trimalleolar fracture with internal fixation Electronically authenticated by: FERCHO VENTURA Date: 08/28/2023 14:03
== END 2023-08-28 09:58 | disposition home or self-care (01) ==
LOC: EC 09:57
PROVIDERS: PCP Family Medicine; Visit Provider Podiatrist Foot & Ankle Surgery
DX: M25.572 Pain in left ankle and joints of left foot (principal); S82.852D Displaced trimalleolar fracture of left lower leg, subsequent encounter for closed fracture with routine healing
CPT/HCPCS: 73610

== ENCOUNTER 2023-12-05 15:09 | Outpatient (OUT) | payer OTHER, SELFPAY ==
--- NOTE | 2023-12-05 | XR_ITS ---
The [address] [address] Patient Name: LUCERO ENGLISH MRN: [id number] date: 1980 Sex: M Assigned Patient Location: [facility] Current Patient Location: Accession/Order Number: [id number] Exam Date: 12/05/2023 15:11 Report Date: 12/09/2023 07:26 At the request of: SEKOU INIGUEZ Procedure: XR ankle LT min 3V PROCEDURE: XR ankle LT min 3V COMPARISON: 08/28/2023 HISTORY: LEFT ANKLE PAIN FINDINGS: BONES:Stable healing trimalleolar fracture with internal fixation. 2 screws across the medial malleolus. Plate and screws across the lateral fibula. Interval increase in sclerosis with bony bridging of the fractures. No new fracture or dislocation SOFT TISSUES:Negative. No visible soft tissue swelling. EFFUSION:None visible. OTHER: Negative. XR/XR ankle LT min 3V IMPRESSION: Stable healing trimalleolar fracture Electronically authenticated by: FERCHO VENTURA Date: 12/09/2023 07:26
--- OUTSIDE RECORDS SUMMARY | 2023-12-05 15:26 | XMS_ITS | CCD ---
Author Organization [facility] Informat ion Partnership [facility] Care Team Providers Care Performance Improvement Analyst Name Role Phone DR MURPHY SO Primary Care Unavailable CHARLENE, DR ESTEFANI Lincoln Consulting Unavailable TORO, DR HAYNES Admitting Unavailable PAY, DR HAYNES Attending Unavailable JORDAN VAZQUEZ Consulting Unavailable LUCINDA JONES Consulting Unavailable DO Murphy So Primary Care Provider MD Akash Greenfield Admit Provider MD Akash Greenfield Attending Provider Murphy So Primary Care Unavailable Gurpreet Calderón Attending UnavailAkash Fried Admitting Unavailable ANA PAULA LOVING Attending Unavailable MURPHY SO Referring Unavailable MURPHY SO Primary Care Unavailable Allergies Allergy Classification Reported Allergen(s) Allergy Type Date of Onset Reaction(s) Facility (1 source) Penicillin Drug Allergy [facility] Repository (3 sources) Penicillins; Translations: [Penicillins] Allergy to substance 05-27-2021 [facility] Medications Current Medications Medication Drug Class(es) Dates [...] on 05-28-2021 Cholesterol [Mass/Vol] 219 mg/dL 140-200 [facility] Comment on above: Chol less than 200 m g/dl low riskChol 201-239 mg/dl borderline riskChol 240 mg/dl and greater high risk Cholesterol in LDL Calc [Mas s/Vol]Ordered By: Akash Greenfield on 05-28-2021 Cholesterol in LDL [Mass/Vol] 122 mg/dL 0-100 [facility] Comment on above: LDL ATP III CLASSIFI CATIONLDL less than 100 mg/dL OptimalLDL 100-129 mg/dL Near or above optimalLDL 130-159 mg/dL Borderline highLDL 160-189 mg/dL HighLDL greater than 189 mg/dL Very high Cholesterol in VLDL Calc [Ma ss/Vol]Ordered By: Akash Greenfield on 05-28-2021 Cholesterol in VLDL [Mass/Vol] 19 mg/dL [facility] ECG 12 lead ECGon 05-28-2021 ECG 12 lead ECG [facility] [place] [address] [place] [address] Electrocardiograph Report Signed Patient: Omid English MR#: [id number] : 1980 Acct:[id number] Age/Sex: 40 / M ADM Date: 05/27/21 Loc: Room: [address] [place] [address] Type: DIS IN Attending Dr: Gurpreet Calderón [...] previous ECGs available Confirmed by ALLA FORDE [facility], TRIP ([id number]) on 05/28/2021 6:39:23 PM Referred By: Electronically Signed By:TRIP ISRAEL MD [facility] Transcribed By: MUS Signed By Trip Israel MD, FAC 05/28/21 1839 Normal [facility] Lipid Panelon 05-28-2021 Cholesterol [Mass/Vol] 219 mg/dL High 140-200 [facility] Comment on above: Result Comment: Chol less than 200 mg/dl low risk Chol 201-239 mg/dl borderline risk Chol 240 mg/dl and greater high risk Performed By: #### L IPID, TSH3 wRFLX, [id number] #### [facility] [address] Cholesterol in HDL [Mass/Vol] 78 mg/dL High 29-71 [facility] Comment on above: Result Comment: HDL CHOL ATP-III CLASSIFICATION Cardiovascular Risk HDL > or equal to 60 mg/dL LOW HDL < 40 mg/dL HIGH Performed By: #### L IPID, TSH3 wRFLX, [id number] #### [facility] [address] Cholesterol.total/Chol esterol in HDL [Mass ratio] 2.8 {ratio} Normal <5.0 [facility] Comment on above: Performed By: #### L IPID, TSH3 wRFLX, [id number] #### [facility] [address] LDL Cholesterol,Calculated 122 mg/dL High 0-100 [facility] Comment on above: Result Comment: LDL ATP III CLASSIFICATION LDL less than 100 mg/dL Optimal LDL 100-129 mg/dL Near or above optimal LDL 130-159 mg/dL Borderline high LDL 160-189 mg/dL High LDL greater than 189 mg/dL Very high Performed By: #### L IPID, TSH3 wRFLX, [id number] #### [facility] [address] Triglyceride w/Reflex 97 mg/dL Normal 35-149 [facility] Comment on above: Result Comment: TRIG ATP III CLASSIFICATION TRIG less than 150 mg/dL Normal TRIG 150-199 mg/dL Borderline high TRIG 200-500 mg/dL High TRIG greater than 500 mg/dL Very high Standard traceable to the Center for Disease Conrtrol and Prevention (CDC) test method. Performed By: #### L IPID, TSH3 wRFLX, [id number] #### [facility] [address] VLDL CHOLESTEROL 19 mg/dL Normal [facility] Comment on above: Performed By: #### L IPID, TSH3 wRFLX, [id number] #### [facility] [address] No Panel InformationOrdered By: Akash Greenfield on 05-28-2021 25-Hydroxy Vitamin D Total 14.3 ng/mL 30-100 [facility] Comment on above: VITAMIN D STATUS 25( [...] Cholesterol in HDL [Mass/Vol] 78 mg/dL 29-71 [facility] Comment on above: HDL CHOL ATP-III CLA SSIFICATION Cardiovascular RiskHDL > or equal to 60 mg/dL LOWHDL < 40 mg/dL HIGH Serum or plasma total choles terol/high density lipoprotein (HDL) cholesterol mass ratOrdered By: Akash Greenfield on 05-28-2021 Cholesterol.total/Chol esterol in HDL [Mass ratio] 2.8 {ratio} [facility] TSH DL <= 0.005 mIU/L QnOrde red By: Akash Greenfield on 05-28-2021 TSH Qn 3.16 m[IU]/L 0.45-5.33 [facility] Thyroid Stim Hormone w/Rflxo n 05-28-2021 Thyroid Stim Hormone w/Rflx 3.16 u[iU]/mL Normal 0.45-5.33 [facility] Comment on above: Performed By: #### L IPID, TSH3 wRFLX, [id number] #### [facility] [address] Triglyceride [Mass/volume] i n Serum or PlasmaOrdered By: Akash Greenfield on 05-28-2021 Triglyceride [Mass/Vol] 97 mg/dL 35-149 [facility] Comment on above: TRIG ATP III CLASSIF ICATIONTRIG less than 150 mg/dL NormalTRIG 150-199 mg/dL Borderline highTRIG 200-500 mg/dL High TRIG greater than 500 mg/dL Very highStandard traceable to the Center for Disease Conrtrol and Prevention (CDC) test method. Vitamin D 25 Hydroxy Totalon 05-28-2021 Vitamin D 25 Hydroxy Total 14.3 ng/mL Low 30-100 [facility] Comment on above: Result Comment: KIMBERLY MIN D STATUS 25(OH)VITAMIN D RANGE (ng/mL) Deficient <20 Insufficient 20 to <30 Sufficient 30 to 100 Reference: Lary MF,Bahman NC, Cherelle NGUYEN, et al. Evaluation,treatment, and prevention of vitamin D deficiency; an Endocrine Society clinical practice guideline. JCEM. 2010; 96(7):1911-30. PERFORMED BY: [facility] [address] [place] [address] PATHOLOGIST MAIL WEIGHER BJ LEE M.D. Performed By: #### L IPID, TSH3 wRFLX, [id number] #### [place] [address] [place] ETHANOL (BLD ALC)on 05-28-19 22 ALC NOTE NOTE: 80 mg/dl is th e legal limit for a blood alcohol level Normal [facility] Comment on above: Performed By: #### E TH #### [facility] [address] [address] [address] Eliseo Olguin Ethanol [Mass/Vol] 15 mg/dL Normal [facility] Comment on above: Performed By: #### E TH #### [facility] [address] [place] [address] Dr. Eliseo Olguin ALC NOTE NOTE: 80 mg/dl is th e legal limit for a blood alcohol level Normal [facility] Comment on above: Performed By: #### E TH #### [facility] [address] [address] [address] Eliseo Olguin Ethanol [Mass/Vol] 118 mg/dL Normal [facility] Comment on above: Performed By: #### E TH #### [facility] [address] [address] [address] Eliseo Olguin ACETAMINOPHENon 05-26-2021 Acetaminophen [Mass/Vol] ug/mL Normal 10.0-30.0 [facility] Comment on above: Performed By: #### S ALYC, ACET, CMP #### [facility] [address] [place] [address] Dr. Eliseo Olguin CBC AUTO DIFFon 05-26-2021 BASO # 0.0 103/ul Normal 0.0-0.1 [facility] Comment on above: Performed By: #### C BC #### [facility] [address] [place] [address] Dr. Eliseo Olguin Basophils/100 WBC (Bld) 0.6 % Normal 0.2-2.0 [facility] Comment on above: Performed By: #### C BC #### [facility] [address] [place] [address] Dr. Eliseo Olguin EO # 0.0 103/ul Normal 0.0-0.7 [facility] Comment on above: Performed By: #### C BC #### [facility] [address] [place] [address] Dr. Eliseo Olguin Eosinophils/100 WBC (Bld) 0.2 % Critically low 0.9-7.0 [facility] Comment on above: Performed By: #### C BC #### [facility] [address] [place] [address] Dr. Eliseo Olguin Erythrocyte distribution width (RBC) [Ratio] 11.0 % Normal 11.0-15.0 [facility] Comment on above: Performed By: #### C BC #### [facility] [address] [place] [address] Dr. Eliseo Olguin Hematocrit (Bld) [Volume fraction] 52.2 % Normal 42.0-54.0 [facility] Comment on above: Performed By: #### C BC #### [facility] [address] [place] [address] Dr. Eliseo Olguin Hemoglobin (Bld) [Mass/Vol] 18.2 g/dL Critically high 14.0-18.0 [facility] Comment on above: Performed By: #### C BC #### [facility] [address] [place] [address] Dr. Eliseo Olguin IG # 0.01 10e3/ul Normal 0.00-0.03 [facility] Comment on above: Performed By: #### C BC #### [facility] [address] [place] [address] Dr. Eliseo Olguin IG % 0.2 % Normal 0.0-0.5 [facility] Comment on above: Performed By: #### C BC #### [facility] [address] [place] [address] Dr. Eliseo Olguin LYMPH # 1.9 103/ul Normal 1.2-3.8 [facility] Comment on above: Performed By: #### C BC #### [facility] [address] [place] [address] Dr. Eliseo Olguin Lymphocytes/100 WBC (Bld) 36.6 % Normal 20.5-60.0 [facility] Comment on above: Performed By: #### C BC #### [facility] [address] [place] [address] Dr. Eliseo Olguin MANUAL DIFF REQ NO Normal [facility] Comment on above: Performed By: #### C BC #### [facility] [address] [place] [address] Dr. Eliseo Olguin MCH (RBC) [Entitic mass] 32.0 pg Normal 25.9-34.0 [facility] Comment on above: Performed By: #### C BC #### [facility] [address] [place] [address] Dr. Eliseo Olguin MCHC (RBC) [Mass/Vol] 34.9 g/dL Normal 29.9-35.2 [facility] Comment on above: Performed By: #### C BC #### [facility] [address] [place] [address] Dr. Eliseo Olguin MCV (RBC) [Entitic vol] 91.7 fL Normal 80.0-94.0 [facility] Comment on above: Performed By: #### C BC #### [facility] [address] [place] [address] Dr. Eliseo Olguin MONO # 0.5 103/ul Normal 0.3-0.8 [facility] Comment on above: Performed By: #### C BC #### [facility] [address] [place] [address] Dr. Eliseo Olguin Monocytes/100 WBC (Bld) 9.9 % Normal 1.7-12.0 [facility] Comment on above: Performed By: #### C BC #### [facility] [address] [place] [address] Dr. Eliseo Olguin NEUT # 2.7 103/ul Normal 1.4-6.5 [facility] Comment on above: Performed By: #### C BC #### [facility] [address] [place] [address] Dr. Eliseo Olguin Neutrophils/100 WBC (Bld) 52.5 % Normal 43.0-75.0 [facility] Comment on above: Performed By: #### C BC #### [facility] [address] [place] [address] Dr. Eliseo Olguin Platelet mean volume (Bld) [Entitic vol] 8.8 fL Critically low 9.5-13.5 [facility] Comment on above: Performed By: #### C BC #### [facility] [address] [place] [address] Dr. Eliseo Olguin PLT 278 103/ul Normal 150-450 [facility] Comment on above: Performed By: #### C BC #### [facility] [address] [place] [address] Dr. Eliseo Ogluin RBC 5.69 106/ul Normal 4.70-6.10 [facility] Comment on above: Performed By: #### C BC #### [facility] [address] [place] [address] Dr. Eliseo Olguin WBC 5.1 103/ul Normal 4.0-11.0 [facility] Comment on above: Performed By: #### C BC #### [facility] [address] [place] [address] Dr. Eliseo Olguin Covid-19 PCR [facility]on SARS-CoV-2 (COVID-19) RNA MEHNAZ+probe Ql (Unsp spec) Not detected Normal NOT DETECTED [facility] Comment on above: Result Comment: This test is not yet approved or cleared by the [place] FDA. When there are no FDA-approved or cleared tests available, and other criteria are met, FDA can make tests available under an emergency access mechanism called an Emergency Use Authorization (EUA). The EUA for this test is supported by the [place] of Health and Human Service's (HHS's) declaration [...] SARS-CoV-2. Performed By: #### C VDTB #### [facility] [address] [place] [address] Dr. Eliseo Olguin DRUG SCREEN RAPID (URINE)on 05-26-2021 AMP Negative Normal NEGATIVE [facility] Comment on above: Performed By: #### S ALYC, ACET, CMP #### [facility] [address] [place] [address] Dr. Eliseo Olguin BAR Negative Normal NEGATIVE [facility] Comment on above: Performed By: #### S ALYC, ACET, CMP #### [facility] [address] [place] [address] Dr. Eliseo Olguin BUP Negative Normal NEGATIVE [facility] Comment on above: Performed By: #### S ALYC, ACET, CMP #### [facility] [address] [place] [address] Dr. Eliseo Olguin BZO Negative Normal NEGATIVE [facility] Comment on above: Performed By: #### S ALYC, ACET, CMP #### [facility] [address] [place] [address] Dr. Eliseo Olguin RAQUEL Negative Normal NEGATIVE [facility] Comment on above: Performed By: #### S ALYC, ACET, CMP #### [facility] [address] [place] [address] Dr. Eliseo Olguin CUT-OFFS SEE BELOW Normal [facility] Comment on above: Result Comment: AMP (Amphetamine): [...] By: #### S ALYC, ACET, CMP #### [facility] [address] [place] [address] Dr. Eliseo Olguin DRUG CUT HEADER DRUG CLASS TEST SYSTEM CUT-OFF CONCENTRATIONS ARE FOLLOWS: Normal [facility] Comment on above: Performed By: #### S ALYC, ACET, CMP #### [facility] [address] [place] [address] Dr. Eliseo Olguin mAMP Negative Normal NEGATIVE [facility] Comment on above: Performed By: #### S ALYC, ACET, CMP #### [facility] [address] [place] [address] Dr. Eliseo Olguin MTD Negative Normal NEGATIVE [facility] Comment on above: Performed By: #### S ALYC, ACET, CMP #### [facility] [address] [place] [address] Dr. Eliseo Olguin OPI Negative Normal NEGATIVE [facility] Comment on above: Performed By: #### S ALYC, ACET, CMP #### [facility] [address] [place] [address] Dr. Eliseo Olguin OXY Negative Normal NEGATIVE [facility] Comment on above: Performed By: #### S ALYC, ACET, CMP #### [facility] [address] [place] [address] Dr. Eliseo Olguin PCP Negative Normal NEGATIVE [facility] Comment on above: Performed By: #### S ALYC, ACET, CMP #### [facility] [address] [place] [address] Dr. Eliseo Olguin PPX Negative Normal NEGATIVE [facility] Comment on above: Performed By: #### S ALYC, ACET, CMP #### [facility] [address] [place] [address] Dr. Eliseo Olguin TCA Negative Normal NEGATIVE [facility] Comment on above: Performed By: #### S ALYC, ACET, CMP #### [facility] [address] [place] [address] Dr. Eliseo Olguin THC Negative Normal NEGATIVE [facility] Comment on above: Performed By: #### S ALYC, ACET, CMP #### [facility] [address] [place] [address] Dr. Eliseo Olguin ER URINE PROFILEon 2 Bilirubin Ql (U) Negative Normal NEGATIVE [facility] Comment on above: Performed By: #### S ALYC, ACET, CMP #### [facility] [address] [place] [address] Dr. Eliseo Olguin Clarity (U) CLEAR Normal CLEAR [facility] Comment on above: Performed By: #### S ALYC, ACET, CMP #### [facility] [address] [place] [address] Dr. Eliseo Olguin Color (U) LT. YELLOW Normal YELLOW [facility] Comment on above: Performed By: #### S ALYC, ACET, CMP #### [facility] [address] [place] [address] Dr. Eliseo Olguin ERUAHD A micrscopic examination will be performed if indicated. Normal [facility] Comment on above: Performed By: #### S ALYC, ACET, CMP #### [facility] [address] [place] [address] Dr. Eliseo Olguin Glucose Ql (U) Negative Normal NEGATIVE [facility] Comment on above: Performed By: #### S ALYC, ACET, CMP #### [facility] [address] [place] [address] Dr. Eliseo Olguin Hemoglobin Ql (U) TRACE-INTACT Abnormal NEGATIVE [facility] Comment on above: Performed By: #### S ALYC, ACET, CMP #### [facility] [address] [address] [address] Eliseo Olguin Ketones Ql (U) 15 mg/dl Abnormal NEGATIVE [facility] Comment on above: Performed By: #### S ALYC, ACET, CMP #### [facility] [address] [place] [address] Dr. Eliseo Olguin LEUKOCYTES Negative Normal NEGATIVE [facility] Comment on above: Performed By: #### S ALYC, ACET, CMP #### [facility] [address] [address] [address] Eliseo Olguin Nitrite Ql (U) Negative Normal NEGATIVE [facility] Comment on above: Performed By: #### S ALYC, ACET, CMP #### [facility] [address] [place] [address] Dr. Eliseo Olguin pH (U) 6.0 [pH] Normal 5-9 [facility] Comment on above: Performed By: #### S ALYC, ACET, CMP #### [facility] [address] [place] [address] Dr. Eliseo Olguin Protein (U) [Mass/Vol] 100 mg/dL Abnormal NEGAT GRAHAM/ TRACE [facility] Comment on above: Performed By: #### S ALYC, ACET, CMP #### [facility] [address] [place] [address] Dr. Eliseo Olguin SPEC GRAVITY 1.015 Normal 1.005-<=1.02 5 [facility] Comment on above: Performed By: #### S ALYC, ACET, CMP #### [facility] [address] [place] [address] Dr. Eliseo Olguin UR MICRO IND INDICATED Normal [facility] Comment on above: Performed By: #### S ALYC, ACET, CMP #### [facility] [address] [place] [address] Dr. Eliseo Olguin Urobilinogen Qn (U) 0.2 {Elma'U}/dL Normal 0.2 - 1. 0 [facility] Comment on above: Performed By: #### S ALYC, ACET, CMP #### [facility] [address] [place] [address] Dr. Eliseo Olguin ETHANOL (BLD ALC)on 05-27-19 22 ALC NOTE NOTE: 80 mg/dl is th e legal limit for a blood alcohol level Normal [facility] Comment on above: Performed By: #### E TH #### [facility] [address] [place] [address] Dr. Eliseo Olguin Ethanol [Mass/Vol] mg/dL Normal [facility] Comment on above: Result Comment: Prev iously reported as: 364 On 05/26/2021 19:41 By JAW Performed By: #### E TH #### [facility] [address] [place] [address] Dr. Eliseo Olguin INFLUENZA A AND B AGon 05-26 INFLUANEGH SEE BELOW Normal [facility] Comment on above: Result Comment: Nega tive for Flu A protein angiten. Infection due to Flu A cannot be ruled out. Flu A angiten in the sample may be below the detection limit of the test. Performed By: #### I NFLUAB #### [facility] [address] [place] [address] Dr. Eliseo Olguin INFLUBNEGH SEE BELOW Normal [facility] Comment on above: Result Comment: Nega tive for Flu B protein antigen. Infection due to Flu B cannot be ruled out. Flu B antigen in the sample may be below the detection limit of the test. Performed By: #### I NFLUAB #### [facility] [address] [place] [address] Dr. Eliseo Olguin INFLUENZA A AG Negative Normal NEGATIVE SEE COMMENT [facility] Comment on above: Performed By: #### I NFLUAB #### [facility] [address] [place] [address] Dr. Eliseo Olguin INFLUENZA B AG Negative Normal NEGATIVE SEE COMMENT [facility] Comment on above: Performed By: #### I NFLUAB #### [facility] [address] [place] [address] Dr. Eliseo Olguin INTERNAL CONTROLS Within Normal Limits Normal Wi thin Normal Limits [facility] Comment on above: Performed By: #### I NFLUAB #### [facility] [address] [address] [address] Eliseo Olguin MAGNESIUMon 05-26-2021 Magnesium [Mass/Vol] 2.2 mg/dL Normal 1.6-2.3 [facility] Comment on above: Performed By: #### M G #### [facility] [address] [address] [address] Eliseo Olguin PROF 14(COMP METB)on 022 Albumin [Mass/Vol] 4.6 g/dL Normal 3.4-5.0 [facility] Comment on above: Performed By: #### S J LUIS TENORIO, CMP #### [facility] [address] [address] [address] Eliseo Olguin Albumin/Globulin [Mass ratio] 1.0 {ratio} Normal [facility] Comment on above: Performed By: #### S JONA ACET, CMP #### [facility] [address] [address] [address] Eliseo Olguin ALP [Catalytic activity/Vol] 84 U/L Normal 46-116 [facility] Comment on above: Performed By: #### S JONA ACET, CMP #### [facility] [address] [address] [address] Eliseo Olguin ALT [Catalytic activity/Vol] 140 U/L Critically high 16-63 [facility] Comment on above: Performed By: #### S JONA ACET, CMP #### [facility] [address] [address] [address] Eliseo Olguin Anion gap [Moles/Vol] 23.7 mmol/L Normal [facility] Comment on above: Performed By: #### S ALWENDY ACET, CMP #### [facility] [address] [address] [address] Eliseo Olguin AST [Catalytic activity/Vol] 82 U/L Critically high 15-37 [facility] Comment on above: Performed By: #### S ALWENDY ACET, CMP #### [facility] [address] [address] [address] Eliseo Olguin Bilirubin [Mass/Vol] 1.4 mg/dL Critically high 0.2-1.3 [facility] Comment on above: Performed By: #### S ALYC, ACET, CMP #### [facility] [address] [address] [address] Eliseo Olguin Calcium [Mass/Vol] 8.9 mg/dL Normal 8.5-10.1 [facility] Comment on above: Performed By: #### S ALYC, ACET, CMP #### [facility] [address] [address] [address] Eliseo Olguin Chloride [Moles/Vol] 95 mmol/L Critically low 98-107 [facility] Comment on above: Performed By: #### S ALYC, ACET, CMP #### [facility] [address] [place] [address] Dr. Eliseo Olguin CO2 [Moles/Vol] 21.1 mmol/L Critically low 22.0-30.0 [facility] Comment on above: Performed By: #### S ALYC, ACET, CMP #### [facility] [address] [address] [address] Eliseo Olguin Creatinine [Mass/Vol] 0.95 mg/dL Normal 0.66-1.25 [facility] Comment on above: Performed By: #### S ALYC, ACET, CMP #### [facility] [address] [place] [address] Dr. Eliseo Olguin EGFR-AF TURKMEN >60 Normal >=[address] [facility] Comment on above: Performed By: #### S ALYC, ACET, CMP #### [facility] [address] [address] [address] Eliseo Olguin EGFR-NON AF TURKMEN >60 Normal >=60 [facility] Comment on above: Performed By: #### S ALYC, ACET, CMP #### [facility] [address] [place] [address] Dr. Eliseo Olguin Globulin (S) [Mass/Vol] 4.4 g/dL Normal [facility] Comment on above: Performed By: #### S ALYC, ACET, CMP #### [facility] [address] [address] [address] Eliseo Olguin Glucose [Mass/Vol] 146 mg/dL Critically high 74-106 [facility] Comment on above: Performed By: #### S ALYC, ACET, CMP #### [facility] [address] [address] [address] Eliseo Olguin Potassium [Moles/Vol] 3.8 mmol/L Normal 3.4-5.0 [facility] Comment on above: Performed By: #### S ALYC, ACET, CMP #### [facility] [address] [address] [address] Eliseo Olguin Protein [Mass/Vol] 9.0 g/dL Critically high 6.1-8.2 [facility] Comment on above: Performed By: #### S ALYC, ACET, CMP #### [facility] [address] [address] [address] Eliseo Olguin Sodium [Moles/Vol] 136 mmol/L Critically low 137-145 [facility] Comment on above: Performed By: #### S ALYC, ACET, CMP #### [facility] [address] [address] [address] Eliseo Olguin Urea nitrogen [Mass/Vol] 13.0 mg/dL Normal 7.0-18.0 [facility] Comment on above: Performed By: #### S ALYC, ACET, CMP #### [facility] [address] [address] [address] Eliseo Olguin Urea nitrogen/Creatinine [Mass ratio] 13.7 mg/mg Normal [facility] Comment on above: Performed By: #### S ALYC, ACET, CMP #### [facility] [address] [place] [address] Dr. Eliseo Olguin SALICYLATEon 05-26-2021 SALICYLATE <1.0 Normal <=20.0 [facility] Comment on above: Performed By: #### S ALYC, ACET, CMP #### [facility] [address] [place] [address] Dr. Eliseo Olguin URINE MICROSCOPIC ONLYon BACTERIA NONE SEEN Normal NONE SEEN [facility] Comment on above: Performed By: #### S ALYC, ACET, CMP #### [facility] [address] [place] [address] Dr. Eliseo Olguin Bacteria identified Cx Nom (U) NOT INDICATED Normal [facility] Comment on above: Performed By: #### S ALYC, ACET, CMP #### [facility] [address] [place] [address] Dr. Eliseo Olguin CAST SEEN Abnormal NONE SEEN [facility] Comment on above: Performed By: #### S ALYC, ACET, CMP #### [facility] [address] [place] [address] Dr. Eliseo Olguin COARSE GRANULAR CAST FEW Normal [facility] Comment on above: Performed By: #### S ALYC, ACET, CMP #### [facility] [address] [place] [address] Dr. Eliseo Olguin Crystals LM Nom (Urine sed) NONE SEEN Normal NONE SEEN [facility] Comment on above: Performed By: #### S ALYC, ACET, CMP #### [facility] [address] [place] [address] Dr. Eliseo Olguin Epithelial cells LM Ql (Urine sed) RARE Normal NONE SEEN /RARE [facility] Comment on above: Performed By: #### S ALYC, ACET, CMP #### [facility] [address] [place] [address] Dr. Eliseo Olguin HYALINE CAST FEW Normal [facility] Comment on above: Performed By: #### S ALYC, ACET, CMP #### [facility] [address] [place] [address] Dr. Eliseo Olguin MUCOUS TRACE Abnormal NONE SEEN [facility] Comment on above: Performed By: #### S ALYC, ACET, CMP #### [facility] [address] [place] [address] Dr. Eliseo Olguin RBC 0-2 Normal 0-2 [facility] Comment on above: Performed By: #### S ALYC, ACET, CMP #### [facility] [address] [address] [address] Eliseo Olguin WBC 0-2 Abnormal NONE SEEN [facility] Comment on above: Performed By: #### S JONA ACET, CMP #### [facility] [address] [address] [address] Eliseo Olguin [facility] [place] 09-15-2020 Albumin [Mass/Vol] 4.7 g/dL Normal 3.6-5.1 [facility] Comment on above: Performed By: #### 1 0231, 7600 #### [facility] [place] [address] [address] Cream Beater: Monster Knight MD Albumin/Globulin [Mass ratio] 1.7 {ratio} Normal 1.0-2.5 [facility] Comment on above: Performed By: #### 1 0231, 7600 #### [facility] [address] [address] [employer]: Monster Knight MD ALP [Catalytic activity/Vol] 57 U/L Normal 36-130 [facility] Comment on above: Performed By: #### 1 0231, 7600 #### [facility] [address] [address] [employer]: Monster Knight MD ALT [Catalytic activity/Vol] 48 U/L High 9-46 [facility] Comment on above: Performed By: #### 1 0231, 7600 #### [facility] of [address] [address] [employer]: Monster Knight MD AST [Catalytic activity/Vol] 35 U/L Normal 10-40 [facility] Comment on above: Performed By: #### 1 0231, 7600 #### [facility] of [address] [address] [employer]: Monster Knight MD Bilirubin [Mass/Vol] 1.0 mg/dL Normal 0.2-1.2 [facility] Comment on above: Performed By: #### 1 0231, 7600 #### [facility] of [address], [address] [place] [address] Cream Beater: Monster Knight MD BUN/CREATININE RATIO NOT APPLICABLE Normal 6-22 [facility] Comment on above: Performed By: #### 1 0231, 7600 #### [facility] of [address], [address] [place] [address] Cream [employer]ater: Monster Knight MD Calcium [Mass/Vol] 9.5 mg/dL Normal 8.6-10.3 [facility] Comment on above: Performed By: #### 1 023, 7600 #### [facility] of [address] [address] [employer]: Monster Knight MD Chloride [Moles/Vol] 102 mmol/L Normal 98-110 [facility] Comment on above: Performed By: #### 1 023, 7600 #### [facility] of [address], [address] [place] [address] [employer]ater: Monster Knight MD CO2 [Moles/Vol] 28 mmol/L Normal 20-32 [facility] Comment on above: Performed By: #### 1 0231, 7600 #### [facility] [address] [address] [employer]: Monster Knight MD Creatinine [Mass/Vol] 0.87 mg/dL Normal 0.60-1.[address] [facility] Comment on above: Performed By: #### 1 023, 7600 #### [facility] of [address] [address] [employer]ater: Monster Knight MD eGFR NON-AFR. TURKMEN 109 mL/min/1.73m2 Normal > OR = 60 [facility] Comment on above: Performed By: #### 1 0231, 7600 #### [facility] of [address] [address] [employer]ater: Monster Knight MD GFR/1.73 sq M.predicted among blacks MDRD (S/P/Bld) [Vol rate/Area] 126 mL/min/{1.73_m2} Normal > OR = 60 [facility] Comment on above: Performed By: #### 1 023, 7600 #### [facility] [address], [address] [place] [address] Cream Beater: Monster Knight MD Globulin (S) [Mass/Vol] 2.7 g/dL Normal 1.9-3.7 [facility] Comment on above: Performed By: #### 1 023, 7600 #### [facility] [address], [address] [place] [address] Cream Beater: Monster Knight MD Glucose [Mass/Vol] 125 mg/dL High 65-99 [facility] Comment on above: Result Comment: Fasting reference interval For someone without known diabetes, a glucose value between 100 and 125 mg/dL is consistent with prediabetes and should be confirmed with a follow-up test. Performed By: #### 1 023, 0 #### [facility] [address], [address] [place] [address] Cream Beater: Monster Knight MD Potassium [Moles/Vol] 4.1 mmol/L Normal 3.5-5.[address] [facility] Comment on above: Performed By: #### 1 023, 7600 #### [facility] [address] [address] [employer]ater: Monster Knight MD Protein [Mass/Vol] 7.4 g/dL Normal 6.1-8.1 [facility] Comment on above: Performed By: #### 1 023, 7600 #### [facility] of [address] [address] [employer]ater: Monster Knight MD Sodium [Moles/Vol] 142 mmol/L Normal 135-146 [facility] Comment on above: Performed By: #### 1 023, 7600 #### [facility] [address], [address] [place] [address] Cream Beater: Monster Knight MD Urea nitrogen [Mass/Vol] 14 mg/dL Normal 7-25 [facility] Comment on above: Performed By: #### 1 0231, 7600 #### [facility] [address], [address] [place] [address] Cream Beater: Monster Knight MD LIPID PANEL, [facility] 07-2 Cholesterol [Mass/Vol] 198 mg/dL Normal <200 [facility] Comment on above: Order Comment: FASTI NG:YES FASTING: YES Performed By: #### 1 0231, 7600 #### [facility] [address], [address] [place] [address] Cream Beater: Monster Knight MD Cholesterol in HDL [Mass/Vol] 81 mg/dL Normal > OR = 40 [facility] Comment on above: Order Comment: FASTI NG:YES FASTING: YES Performed By: #### 1 023, 0 #### [facility] [address], [address] [place] [address] Cream Beater: Monster Knight MD Cholesterol in LDL [Mass/Vol] [...] LDL-C. Rashi OLSON et al. NATE. 2013;310(19): 1763-8737 (http://education.[employer]/faq/FYY740) Performed By: #### 1 0231, 7600 #### [facility] [address], [address] [place] [address] Cream Beater: Monster Knight MD Cholesterol.total/Chol esterol in HDL [Mass ratio] 2.4 {ratio} Normal <5.0 [facility] Comment on above: Order Comment: FASTI NG:YES FASTING: YES Performed By: #### 1 0231, 0 #### [facility] [address] [place] [address], [address] [place] [address] Cream Beater: Monster Knight MD NON HDL CHOLESTEROL 117 mg/dL (calc) Normal <130 [facility] Comment on above: Order Comment: FASTI NG:YES FASTING: YES Result Comment: For patients with diabetes plus 1 major ASCVD risk factor, treating to a non-HDL-C goal of <100 mg/dL (LDL-C of <70 mg/dL) is considered a therapeutic option. Performed By: #### 1 0231, 7600 #### [facility] [address], [address] [id number] Cream Beater: Monster Knight MD Triglyceride [Mass/Vol] 362 mg/dL High <150 [facility] Comment on above: Order Comment: FASTI NG:YES FASTING: YES Result Comment: If a non-fasting specimen was collected, consider repeat triglyceride testing on a fasting specimen if clinically indicated. Andrzej et al. J. of Clin. Lipidol. 2015;9:129-169. Performed By: #### 1 023, 7600 #### [facility] [address], [address] [place], [place] [id number] Cream Beater: Monster Knight MD Vital Signs Date Time Vital Sign Value Performing Clinician Anais garber 05-31-2021 08:00-0400 Body temperature 97.7 [degF] DO Murphy [employer] Work Phone: [facility] 05-31-2021 08:00-0400 Diastolic blood pressure 77 mm[Hg] DO Murphy Furlong Work Phone: [facility] 05-31-2021 08:00-0400 Heart rate 65 /min DO Murphy Furlong Work Phone: [facility] 05-31-2021 08:00-0400 Respiratory rate 16 /min DO Murphy Furlong Work Phone: [facility] 05-31-2021 08:00-0400 SaO2% (BldA) [Mass fraction] 97 % DO Murphy Furlong Work Phone: [facility] 05-31-2021 08:00-0400 Systolic blood pressure 114 mm[Hg] DO Murphy Mcginnislong Work Phone: [facility] 05-29-2021 09:00-0400 Body weight 90.03 kg DO Murphy Mcginnislong Work Phone: [facility] 05-28-2021 12:33-0400 Body height 180.34 cm DO Murphy Mcginnislong Work Phone: [facility] 05-27-2021 16:12-0400 Body mass index (BMI) [Ratio] 27.8 kg/m2 DO Murphy Mcginnislong Work Phone: [facility] Encounters Encounter Date Encounter Type Care Provider Facility Start: 06-26-2023 End: 06-26-2023 ambulatory [facility] Start: 05-27-2021 End: 05-31-2021 Evaluation and management of inpatient Murphy So Facility:[facility] Start: 05-27-2021 End: 05-31-2021 Evaluation and management of inpatient DO Murphy So Work Phone: [facility] Start: 05-26-2021 End: 05-27-[address] MURPHY Navarro [facility] Facility: Plan of Treatment Date Care Activity Detail Author Patient Education Depression, Ad ult (DC) [facility] [place] Instructions [facility] Work Phone: Patient referral [facility] Work Phone: Payers Date Payer Category Payer Unknown [id number] 2021 Self-pay [id number] 1980 Unknown [id number] 1980 Unknown [id number] 1959 Unknown [id number] Unknown [id number] Social History Date Type Detail Facility Start: 05-28-2021 Tobacco smoking stat us NHIS Never smoked tobacco (finding) [facility] Start: 1980 Sex Assigned At Male F [facility] Functional Status Date Assessment Result Facility 05-31-2021 Functional status Patient at Baseline [facility] Work Phone: Mental Status Date Assessment Result Facility 05-31-2021 Cognitive function Cognitive Sta tus Patient at Baseline [facility] Work Phone: Discharge summary 05-31-2021 Note Date & Type Note Facility 05-31-2021 Discharge summary Note Date/Time May 31, 2021 8:47am [facility] [address] [place] [address] Discharge Summary Signed Patient: Omid English MR#: [id number] : 1980 Acct:[id number] Age/Sex: 40 / M Adm Date: 2 Loc: Room: [address] [place] [address]: Akash Greenfield MD Copies to: MD Akash Watts MD Dennis G Furlong,DO~ Providers Date of Discharge: 05/31/21 Discharging Provider: Gurpreet Calderón Primary Care Provider: Murphy So Consults: [...] Days Qty: 15 RF: 1 Follow Up: [facility] [Outside] ( information resources manager: (Insert date/time here) Therapy:? (insert date/time here) Intake: (Insert date/time here) Please bring a copy of your photo ID, insurance card, and proof of household income.? Psychiatry: (Insert date/time here) Group: (Insert date/time here ) ) Documented By: Eliud Calderón MD 2 0844 Signed By: <Electronically signed by Eliud Calderón MD> 05/31/21 0847 [facility] Work Phone: Progress note 05-30-2021 Note Date & Type Note Facility 05-30-2021 Progress note Note Date/Time May 30, 2021 8:57am [facility] [address] [place] [address] Psychiatry Progress Note Signed Patient: Omid English MR#: [id number] : 1980 Acct:[id number] Age/Sex: 40 / M Adm Date: 2 Loc: Room: [address] [place] [address] Type : ADM IN Attending Dr: Akash [...] signed by Eliud Calderón MD> 05/30/21 0857 [facility] Work Phone: Progress note 05-29-2021 Note Date & Type Note Facility 05-29-2021 Progress note Note Date/Time May 29, 2021 8:55am [facility] [address] [place] [address] Psychiatry Progress Note Signed Patient: Omid English MR#: [id number] : 1980 Acct:[id number] Age/Sex: 40 / M Adm Date: 2 Loc: Room: 5Y1651-5 Type : ADM IN Attending Dr: Akash [...] signed by Eliud Calderón MD> 05/29/21 0855 [facility] Work Phone: History and physical note 05-28-2021 Note Date & Type Note Facility 05-28-2021 History and physi alana note Note Date/Time May 28, 2021 11:59am [facility] [address] [place] [address] Psychiatry H&P Signed Patient: Omid English MR#: [id number] : 1980 Acct:[id number] Age/Sex: 40 / M Adm Date: 2 Loc: Room: 6N0078-7 Type : ADM IN Attending Dr: Akash [...] signed by Akash Greenfield MD> 05/28/21 1159 [facility] Work Phone: Evaluation note Note Date & Type Note Facility Evaluation note Diagnosis Onset Date Alcohol use disorder acute Major depressive disorder, recurrent acute [facility] Work Phone: Hospital Discharge instructions Note Date & Type Note Facility Hospital Discharge instructions Additional Instructions Regular diet. No activity restrictions. [facility] Work Phone: Summary Purpose Family History No [...] CREATED AUTHOR AUTHOR'S ORGANIZ ATION 05/31/2021 [facility] DATE CREATED AUTHOR AUTHOR'S ORGANIZ ATION 03/24/2022 [facility] DATE CREATED AUTHOR AUTHOR'S ORGANIZ ATION 06/28/2023 [facility] Care Teams (unrecognized sec tion [...] BE BASED ON THE PRIMARY CLINICAL RECORDS. [employer] [facility]. provides no warranty or guarantee of the accuracy or completeness of information in this document.
== END 2023-12-05 15:10 | disposition home or self-care (01) ==
LOC: RAD 15:09
PROVIDERS: PCP Family Medicine; Visit Provider Physician Assistant
DX: M25.572 Pain in left ankle and joints of left foot (principal); S82.852D Displaced trimalleolar fracture of left lower leg, subsequent encounter for closed fracture with routine healing
CPT/HCPCS: 73610